=== PATIENT | female | born 1965 | race Caucasian/White ===

== ENCOUNTER 2025-04-11 11:45 | Emergency (ER) | payer BC, SELFPAY ==
--- OUTSIDE RECORDS SUMMARY | 2024-02-11 05:10 | XMS_ITS ---
Author Organization [facility] Address [address] [place], [place] [id number] Care Team Providers Care Windows Application Developer Name Role Phone MARIETTA PARK Unavailable [phone] Jazzy Adam Unavailable Unavailable REASON FOR VISIT *General care Encounters Encounter Location Date Provider Diagnosis [facility] [address] [facility] [address] [place], [place] [id number] 02/11/2024 MARIETTA PARK Plan Of Treatment No Information Progress Notes * JUNIREBECCATONIAOB: 3 (59 yo F)Acc No.[id number]:02/11/2024 Patient: STEPHANE BORREGO Provider: Ced PARK :1965 A ge:58 Y S ex:Female Date:02/11/2024 Address:[facility] [address] [id number] Subjective: * Chief Complaints: * 1 . *General care. * Medical History: Objective: * Vitals: Assessment: Plan: * Treatment: * Billing Information: * Visit Code: * Procedure Codes: * Electronic signature of VINICIO PARK DPM on 04/11/2025 at 12:06 PM CDT Sign off status: Pending * Provider: Ced PARK Date: 02/11/2024 Generated for Keegani ng/Facammyg/eTransmitting on: 04/11/2025 12:06 PM CDT
--- OUTSIDE RECORDS SUMMARY | 2025-01-27 05:40 | XMS_ITS ---
[facility] Address [address] [place], [place] [id number] Care Team Providers Care Principal Java Software Engineer Name Role Phone MARIETTA PARK Unavailable [phone] Jazzy Adam Unavailable Unavailable CARLOS PARKS Unavailable [phone] REASON FOR VISIT lamisol follow up Encounters Encounter Location Date Provider Diagnosis [facility] [address] [facility] [address] [place], [place] [id number] 01/27/2025 CARLOS PARKS Plan Of Treatment No Information Progress Notes * SHERRON ALFREDOOB: 3 (59 yo F)Acc No.[id number]:01/27/2025 Patient: STEPHANE BORREGO Provider: Mercy Parks DPM :1965 A ge:59 Y S ex:Female Date:01/27/2025 Address:[facility] [address] [id number] Subjective: * Chief Complaints: * 1 . Lamisol follow up. * Medical History: Objective: * Vitals: Assessment: Plan: * Treatment: * Billing Information: * Visit Code: * Procedure Codes: * Electronic signature of CARLOS PARKS DPM on 04/11/2025 at 12:06 PM CDT Sign off status: Pending * Provider: Mercy Parks DPM Date: 01/27/2025 Generated for Juany lipscomb/Myriam/eTransmitting on: 04/11/2025 12:06 PM CDT
--- OUTSIDE RECORDS SUMMARY | 2025-03-16 08:10 | XMS_ITS ---
Author [facility] Address [address] [place], [place] [phone] Care Team Providers Care Sheetrock Applicator Name Role Phone MARIETTA PARK Unavailable [phone] Jazzy Adam Unavailable Unavailable CARLOS PARKS Unavailable [phone] REASON FOR VISIT *Fungal nail check Encounters Encounter Location Date Provider Diagnosis [facility] [address] [facility] [address] [place], [place] [id number] 03/16/2025 CALROS PARKS Plan Of Treatment No Information Progress Notes * SHERRON ALFREDOOB: 3 (59 yo F)Acc No.[id number]:03/16/2025 Patient: STEPHANE BORREGO Provider: Mercy Parks DPM :1965 A ge:59 Y S ex:Female Date:03/16/2025 Address:[facility] [address] [facility] Subjective: * Chief Complaints: * 1 . *Fungal nail check. * Medical History: Objective: * Vitals: Assessment: Plan: * Treatment: * Billing Information: * Visit Code: * Procedure Codes: * Electronic signature of CARLOS PARKS DPM on 04/11/2025 at 12:06 PM CDT Sign off status: Pending * Provider: Mercy Parks DPM Date: 03/16/2025 Generated for Juany lipscomb/Myriam/eTransmitting on: 04/11/2025 12:06 PM CDT
--- OUTSIDE RECORDS SUMMARY | 2025-04-06 05:53 | XMS_ITS | Continuity of Care Document ---
Author Organization [employer] Address [address] [place] [address] Phone Care Team Providers Care Recycling Assistant Name Role Phone Jazzy Adam MD Unavailable Unavailable Allergies, Adverse Reactions, Alerts Substance Reaction Status Criticality No Known Allergies Active No Inform ation Medications Medication Instructions Dosage Effective Dates (start - stop) Status Comments diazepam 5 mg tablet TAKE 1/2 TO 1 TAB TWICE DAILY NEEDED FOR ANXIETY. DO NOT TAKE WITHIN 8 HOURS OF TAKING AMBIEN - Active clobetasol 0.05 % topical cream apply by topical route 2 times every day a thin layer to the affected areas on arms and legs and trunk - Active sertraline 50 mg tablet 1/2 tab once daily x 1 week then 1 tab once daily - Active Ambien 5 mg tablet TAKE 1 TABLET BY PRESTON EVERY DAY AT BEDTIME NEEDED FOR INSOMNIA - Active Calcium 500 + D 500 mg(1,250 mg)-400 unit chewable tablet chew 2 gummies by mouth once daily - Active Fiber Gummies 2 gram chewable tablet 2 chewable tablets daily - Active Probiotic 3 billion cell chewable tablet 2 tablets daily - Active Xiidra 5 % eye drops in a dropperette instill 1 drop by ophthalmic route 2 times every day into both eyes approximately 12 hours apart 1.00 drop - Active Vitamin D3 5,000 unit tablet take 1 tablet by mouth once daily - Active hydroxyzine HCl 10 mg tablet 1 to 2 tabs every 6 hours as needed for itching and anxiety - Active Procedures Procedure Date DSCHRG MED/CURRENT MED MERGE OFFICE INMSR-DIZ-YDHEVWVR BODY MASS INDEX DOCD SYST BP >= 140 MM HG6 IT DIAST BP 80-89 MM HG HEPATIC FUNCTION PANEL(LFT, LIVER) OFFICE LHRJT-SDJ-UOYOGWBI SYST BP >= 140 MM HG6 IT DIAST BP < 80 MM HG CBC, INC PLATELETS AND DIFFERENTIAL COMPREHEN METABOLIC PANEL CMP LIPID PANEL Pt inelig neg scrn depres PREVENTATIVE-EST: BODY MASS INDEX DOCD SYST BP LT 130 MM HG DIAST BP < 80 MM HG ROUTINE VENIPUNCTURE IL OFFICE IYSXG-JIM-FZSPXHXZ BODY MASS INDEX DOCD SYST BP GE 130 - 139MM HG DIAST BP < 80 MM HG Brief Emotional/Behavioral A ssessment, With Scoring/Doct, Per Stndrd Instrument Clin depression screen doc OFFICE DYFUB-NLD-VSFMTLEA BODY MASS INDEX DOCD SYST BP LT 130 MM HG DIAST BP < 80 MM HG OFFICE GANIW-KQC-IFXIARZI BODY MASS INDEX DOCD SYST BP LT 130 MM HG DIAST BP < 80 MM HG OFFICE DVSRL-ZFL-STJOARWC SYST BP >= 140 MM HG6 IT DIAST BP < 80 MM HG Pt inelig neg scrn depres PREVENTATIVE-EST: BODY MASS INDEX DOCD SYST BP LT 130 MM HG DIAST BP < 80 MM HG CBC, INC PLATELETS AND DIFFERENTIAL COMPREHEN METABOLIC PANEL CMP 3 LIPID PANEL ROUTINE VENIPUNCTURE IL OFFICE ZRERC-PFG-QNEIJNXK BODY MASS INDEX DOCD SYST BP LT 130 MM HG DIAST BP < 80 MM HG Pt inelig neg scrn depres PREVENTATIVE-EST: 40-64 BODY MASS INDEX DOCD SYST BP GE 130 - 139MM HG DIAST BP < 80 MM HG GENERAL HEALTH PANEL LIPID PANEL ROUTINE VENIPUNCTURE OFFICE NIALK-JGY-ZMKWJREB BODY MASS INDEX DOCD SYST BP LT 130 MM HG DIAST BP < 80 MM HG Pt inelig neg scrn depres OFFICE ERLTW-PDS-QLPUPSTG BODY MASS INDEX DOCD SYST BP >= 140 MM HG6 IT DIAST BP 80-89 MM HG Pt inelig neg scrn depres PREVENTATIVE-EST: 40-64 BODY MASS INDEX DOCD SYST BP LT 130 MM HG DIAST BP < 80 MM HG CBC, INC PLATELETS AND DIFFERENTIAL COMPREHEN METABOLIC PANEL CMP 1 LIPID PANEL ROUTINE VENIPUNCTURE SYST BP GE 130 - 139MM HG DIAST BP < 80 MM HG OFFICE QMMJD-XPS-YCSAEGMK BODY MASS INDEX DOCD SYST BP GE 130 - 139MM HG DIAST BP < 80 MM HG OFFICE PTFTZ-QBV-IHAAYSFT BODY MASS INDEX DOCD SYST BP GE 130 - 139MM HG DIAST BP < 80 MM HG OFFICE YWMUN-ILA-OXACXEAI BODY MASS INDEX DOCD SYST BP GE 130 - 139MM HG DIAST BP < 80 MM HG Pt inelig neg scrn depres DESTRUCT BENIGN LESIONS OTHE R THAN SKIN TAGS OR CUTANEOUS VASCULAR LESIONS UP TO OFFICE NIBZP-CTH-IILBJIUQ BODY MASS INDEX DOCD SYST BP GE 130 - 139MM HG DIAST BP < 80 MM HG EAR WASH, REMOVAL IMPACTED CERUMEN Requi ring Instrumentation CBC, INC PLATELETS AND DIFFERENTIAL COMPREHEN METABOLIC PANEL CMP 0 LIPID PANEL ROUTINE VENIPUNCTURE EAR WASH, REMOVAL IMPACTED CERUMEN Requi ring Instrumentation Pt inelig neg scrn depres PREVENTATIVE-EST: 40-64 BODY MASS INDEX DOCD SYST BP GE 130 - 139MM HG DIAST BP < 80 MM HG OFFICE HHZRW-ITK-SGMWUWCX BODY MASS INDEX DOCD SYST BP LT 130 MM HG DIAST BP < 80 MM HG Advance Directives Directive Yes / No Effective Date File Name Life Support Not Answered N/A N/A Intubation Not Answered N/A N/A Antibiotics Not Answered N/A N/A IV Fluid Support Not Answered N/A N/A Tube Feed Not Answered N/A N/A Other Directive N/A N/A WARNING:The information contained in this section is historical and is provided for information only and does not constitute a legal document or any assurance that the information is still accurate. Please verify the information with the briceno of the legal document before using it for clinical purposes. Encounters Encounter Description Practice Location Reason(s) For Visit Diagnoses Date Provider Providers Copied on Encounter [facility], [address], [place], [place], [address] , [place] tel: [phone] [facility] No Information 5 Jair Purcell. [address] [place], [place], [address] , [place]. tel: [phone] [facility], [address], [place], [place], [address] , [place] tel: [phone] [facility] No Information Mar-0 5 Jair Purcell. [address] [place], [place], [address] , [place]. tel: [phone] Referring Provider: Jazzy Ch, [address] [place], [address] . tel:[phone] OFFICE SYLWX-SET-HJ [facility], [address], [place], [place], [address] , [place] tel: [phone] [facility] f/u urgent care visit (chief complaint)satinder luate rash (chief complaint) Anxiety, generalizedRash 5 Jair Purcell. [address] [place], [address] , [place]. tel: [phone] Referring Provider: Jazzy Ch, [address] [place], [address] . tel:[phone] [facility], [address], [place], [place], [address] , [place] tel: [phone] [facility] No Information 5 Bernice Machado. [address], [address] , [place]. tel: [phone] Referring Provider: Any Cook, [address] [place], [address] . tel:[phone] OFFICE XWPQM-VNK-OW [facility], [address], [place], [place], [address] , [place] tel: [phone] [facility] ear pain (chief complaint) Right acute otitis mediaAcute effusion of right earAcute conjunctivitis of left eye, unspecified acute conjunctivitis typeThickened nailTinea unguium 5 Joey Agarwal. [address] [place], [address] , [place]. tel: [phone] Referring Provider: Jazzy Ch, [address] [place], [address] . tel:[phone] [facility], [address], [place], [place], [address] , [place] tel: [phone] [facility] No Information 4 Bernice Machado. [address] [place] [address], [address] , [place]. tel: [phone] Referring Provider: Jazzy Ch, [address] [place], [address] . tel:[phone] PREVENTATIVE -EST: 40-64 [facility], [address], [place], [place], [address] , [place] tel: [phone] [facility] preventive exam (chief complaint) Body mass index [BMI] 23.0-23.9, adultGeneralized anxiety disorderInsomnia , unspecified typeAnnual physical exam 4 Jair Purcell. [address] [place], [place], [address] , [place]. tel: [phone] Referring Provider: Jazzy Ch, [address] [place], [address] . tel:[phone] OFFICE SCBUA-JVW-IQ TAILED [facility], [address], [place], [place], [address] , [place] tel: [phone] [facility] Chronic conditions (chief complaint)Chr onic Conditions (chief complaint) Insomnia, unspecified typeDysfunction of left eustachian tubeThrushGenera lized anxiety disorder 4 Jair Purcell. [address] [place], [place], [address] , [place]. tel: [phone] Referring Provider: Jazzy Ch, [address] [place], [address] . tel:[phone] OFFICE ZLSAB-SMY-CQ TAILED [facility], [address], [place], [place], [address] , [place] tel: [phone] [facility] Evaluate increased anxiety (chief complaint) Generalized anxiety disorderInsomnia , unspecified typeModerate major depression 4 Jair Purcell. [address] [place], [place], [address] , [place]. tel: [phone] Referring Provider: Jazzy Ch, [address] [place], [address] . tel:[phone] [employer] [facility], [address], [place], [place], [address] , [place] tel: [phone] [facility] Asymptomatic menopausal state 4 Jair Purcell. [address] [place], [address] , [place]. tel: [phone] OFFICE YMBOD-GIB-YQ PANDED [employer] [facility], [address], [place], [place], [address] , [place] tel: [phone] [facility] itchy/irritat ed eyes (chief complaint) Watery eyesPruritus of both eyesEye swelling, left May-0 3 Jair Purcell. [address] [place], [place], [address] , [place]. tel: [phone] Referring Provider: Jazzy Ch, [address] [place], [address] . tel:[phone] OFFICE BDSCO-HVP-EM PANDED [facility], [address], [place], [place], [address] , [place] tel: [phone] [facility] dry mouth (chief complaint) Dry mouth 0 3 Cook Any. [address] [place], [place], [address] , [place]. tel: [phone] Referring Provider: Jazzy Ch, [address] [place], [address] . tel:[phone] PREVENTATIVE -EST: 40-64 [facility], [address], [place], [place], [address] , [place] tel: [phone] [facility] preventive exam (chief complaint) Body mass index [BMI] 23.0-23.9, adultAnnual physical exam Sep- 3 Jair Purcell. [address] [place], [place], [address] , [place]. tel: [phone] Referring Provider: Jazzy Ch, [address] [place], [address] . tel:[phone] [facility], [address], [place], [place], [address] , [place] tel: [phone] [facility] No Information Sep- 3 Bernice Ashn. [address] [facility], [address], [address] , [place]. tel: [phone] Referring Provider: Jazzy Ch, [address] [place], [address] . tel:[phone] [facility], [address], [place], [place], [address] , [place] tel: [phone] [facility] Annual physical examScreening for lipid disorders Sep- 3 Jair Purcell. [address] [place], [place], [address] , [place]. tel:[phone] Referring Provider: Jazzy Ch, [address] [place], [address] . tel:[phone] OFFICE YEIOA-ASF-XO PANDED [facility], [address], [place], [place], [address] , [place] tel: [phone] [facility] evaluate multiple complaints (chief complaint) Pain in right kneePain in left kneeNeck painLeft-sided headache Apr-2 3 Jair Purcell. [address] [place], [address] , [place]. tel:[phone] Referring Provider: Jazzy Ch, [address] [place], [address] . tel:[phone] PREVENTATIVE -EST: 40-64 [facility], [address], [place], [place], [address] , [place] tel:[phone] Aline Px (chief complaint) Body mass index [BMI] 23.0-23.9, adultRoutine medical exam 2 Jair Purcell. [address] [place], [address] , [place]. tel:[phone] Referring Provider: Jazzy Ch, [address] [place], [address] . tel:[phone] [facility], [address], [place], [place], [address] , [place] tel: [phone] Aline Blood tests for routine general physical examinationScree adrianne for lipoid disordersFatigue , unspecified type 2 Jair Purcell. [address] [place], [address] , [place]. tel:[phone] Referring Provider: Jazzy Ch, [address] [place], [address] . tel:[phone] OFFICE XGFEF-SKA-IU [facility], [address], [place], [place], [address] , [place] tel: [phone] Aline evaluate chest pain (chief complaint) Body mass index [BMI] 22.0-22.9, adultGeneralized anxiety disorderChest wall painInsomnia, unspecified typeUpper back pain 2 Jair Purcell. [address] [place], [address] , [place]. tel:[phone] Referring Provider: Jazzy Ch, [address] [place], [address] . tel:[phone] OFFICE SCNJU-YRO-NW [facility], [address], [place], [place], [address] , [place] tel: [phone] Aline f/u bronchitis (chief complaint) Body mass index [BMI] 22.0-22.9, adultSinusitis, unspecified chronicity, unspecified locationBronchit is 2 Jair Purcell. [address] [place], [place], [address] , [place]. tel: [phone] Referring Provider: Jazzy Ch, [address] [place], [address] . tel:[phone] PREVENTATIVE -EST: 40-64 [employer], [address], [place], [place], [address] , tel: [phone] [employer] Preventative exam (chief complaint)pre ventive exam (chief complaint) Body mass index (BMI) 23.0-23.9, adultRoutine medical examDigital mucinous cyst of finger of right hand 1 Jair Purcell. [address] [place], [place], [address] , [place]. tel: [phone] Referring Provider: Jazzy Ch, [address] [place], [address] . tel:[phone] [employer], [address], [place], [place], [address] , [place] tel: [phone] [facility] Routine medical exam 1 Jair Purcell. [address] [place], [place], [address] , [place]. tel: [phone] Referring Provider: Jazzy Ch, [address] [place], [address] . tel:[phone] OFFICE BSNJG-HGL-RR PANDED [employer], [address], [place], [place], [address] , tel: [phone] [facility] tick bite (chief complaint) Tick bite, initial encounterAllergi c reaction, initial encounterAnxiety Insomnia, unspecified type 1 Joey Agarwal. [address] [place], [place], [address] , [place]. tel: [phone] Referring Provider: Jazzy Ch, [address] [place], [address] . tel:[phone] OFFICE ENIXJ-RAN-AD [facility], [address], [place], [place], [address] , [place] tel: [phone] Aline right ear issues (chief complaint) Pulsatile tinnitus, right earAnxiety Apr-2 1 Joey Any. [address] [place], [place], [address] , [place]. tel: [phone] Referring Provider: Jazzy Ch, [address] [place], [address] . tel:[phone] OFFICE QEUTS-TKZ-OO [facility], [address], [place], [place], [address] , [place] tel: [phone] Aline possible anxiety (chief complaint) Anxiety Oct- 1 Joey Roblesa. [address] [place], [place], [address] , [place]. tel: [phone] Referring Provider: aJzzy Ch, [address] [place], [address] . tel:[phone] [facility], [address], [place], [place], [address] , [place] tel: [phone] Aline Acute pain of left shoulder Apr-0 1 Jair Purcell. [address] [place], [place], [address] , [place]. tel: [phone] OFFICE QGMZZ-YZB-EM [facility], [address], [place], [place], [address] , [place] tel: [phone] Aline evaluate left shoulder pain (chief complaint)Chr onic Conditions (chief complaint) Body mass index (BMI) 25.0-25.9, adultAcute pain of left shoulderInflamed seborrheic keratosisInsomni a, unspecified typeDigital mucinous cyst of finger of right hand Sep-2 1 Jair Purcell. [address] [place], [place], [address] , [place]. tel: [phone] Referring Provider: Jazzy Ch, [address] [place], [address] . tel:[phone] [facility], [address], [place], [place], [address] , [place] tel: [phone] [facility] Pain of right middle finger 1 Jair Purcell. [address] [place], [address] , [place]. tel: [phone] [facility], [address], [place], [place], [address] , [place] tel: [phone] [facility] Paresthesias in right hand Sep-1 0-202 0 Jair Purcell. [address] [place], [address] , [place]. tel: [phone] [facility], [address], [place], [place], [address] , [place] tel: [phone] [facility] cerumen impaction (chief complaint) Bilateral impacted cerumenBilateral hearing loss, unspecified hearing loss typeAdult general medical exam 0 Joey Agarwal. [address] [place], [address] , [place]. tel: [phone] Referring Provider: Jazzy Ch, [address] [place], [address] . tel:[phone] PREVENTATIVE -EST: 40-64 [facility], [address], [place], [place], [address] , [place] tel: [phone] [facility] Physical (chief complaint)pre ventive exam (chief complaint) Body mass index (BMI) 25.0-25.9, [facility] medical examBilateral impacted cerumen 0 Jair Purcell. [address] [place], [place], [address] , [place]. tel: [phone] Referring Provider: Jazzy Ch, [address] [place], [address] . tel:[phone] OFFICE PMVLV-VFC-QH TAILED [facility], [address], [place], [place], [address] , [place] tel: [phone] [facility] 3rd right toe red and painful (chief complaint) Paronychia of toe of right footFatigue, unspecified type Sep- 2- 0 Cook Any. [address] [place], [place], [address] , [place]. tel: [phone] Referring Provider: Jazzy Ch, [address] [place], [address] . tel:[phone] [facility], [address], [place], [place], [address] , [place] tel: [phone] [facility] Breast asymmetry 9 Jair Purcell. [address] [place], [place], [address] , [place]. tel: [phone] Referring Provider: Jazzy Ch, [address] [place], [address] . tel:[phone] [facility], [address], [place], [place], [address] , [place] tel: [phone] [facility] Routine medical examPure hypercholesterol emiaRight knee pain, unspecified chronicity 9 Jair Purcell. [address] [place], [address] , [place]. tel: [phone] Referring Provider: Jazzy hC, [address] [place], [address] . tel:[phone] [facility], [address], [place], [place], [address] , [place] tel: [phone] [facility] Routine general medical examination at a health care facilityPure hypercholesterol emia 9 Jair Purcell. [address] [place], [place], [address] , [place]. tel: [phone] Referring Provider: Jazzy Ch, [address] [place], [address] . tel:[phone] [facility], [address], [place], [place], [address] , [place] tel: [phone] Aline Post-menopausal Jun- 8 Jair Purcell. [address] [place], [address] , [place]. tel: [phone] [facility], [address], [place], [place], [address] , [place] tel: [phone] Aline Right foot painAcute pain of right knee 8 Jair Purcell. [address] [place], [place], [address] , [place]. tel: [phone] [facility], [address], [place], [place], [address] , [place] tel: [phone] Aline Acute pain of right kneeRight foot pain 8 Jair Purcell. [address] [place], [place], [address] , [place]. tel: [phone] Referring Provider: Jazzy Ch, [address] [place], [address] . tel:[phone] [employer], [address], [place], [place], [address] , [place] tel: [phone] [facility] Allergic rhinitis, unspecified seasonality, unspecified triggerSeborrhei c keratosis 8 Jair Purcell. [address] [place], [place], [address] , [place]. tel: [phone] Referring Provider: Jazzy Ch, [address] [place], [address] . tel:[phone] [employer], [address], [place], [place], [address] , [place] tel: [phone] [facility] Pure hypercholesterol emiaInsomnia due to medical conditionDegener ative disc disease, lumbar Oct- 8 Jair Jazzy. [address] [place], [place], [address] , [place]. tel: [phone] Referring Provider: Jazzy Ch, [address] [place], [address] . tel:[phone] [employer] [facility], [address], [place], [place], [address] , [place] tel: [phone] Aline Pure hypercholesterol emiaRoutine general medical examination at a health care facility 8 Jair Purcell. [address] [place], [place], [address] , [place]. tel:[phone] Referring Provider: Jazzy Ch, [address] [place], [address] . tel:[phone] [facility], [address], [place], [place], [address] , tel: [phone] [facility] Pain of toe of left foot 0 8 Jair Purcell. [address] [place], [address] , [place]. tel:[phone] [facility], [address], [place], [place], [address] , tel: [phone] [facility] Routine general medical examination at a health care facilityPure hypercholesterol emiaDegenerative disc disease, lumbarInsomnia due to medical conditionScreeni ng for osteoporosis 8 Jair Jazzy. [address] [place], [place], [address] , [place]. [phone] Referring Provider: Jazzy Ch, [address] [place], [address] . tel:[phone] Family History Family Member Type Diagnosis Age At Onset No Information Immunizations Vaccine Date Status Comments Fluzone Quad, preservative free, split virus, 0.5mL dosage refused Source: New Immuniza tion Record Tdap administered Source: Source Unspecified Payers Payer name Insurance type Covered republican ID Authoriza tion(s) [facility] [id number] Social History Type Description Quantity Date Captured Comments Alcohol Use Details Unknown Caffeine Use Details Unknown Tobacco Use Status No Information Smoking Status No Information Sex Female Chief Complaint And Reason For Visit No Information Reason For Referral Reason For Referral No Information Plan Of Treatment Date Type Action Status Goal Dietary manageme nt education, guidance, and counseling completed Goal Dietary manageme nt education, guidance, and counseling completed Goal Dietary manageme nt education, guidance, and counseling completed Goal Dietary manageme nt education, guidance, and counseling completed Goal Dietary manageme nt education, guidance, and counseling completed Goal Dietary manageme nt education, guidance, and counseling completed Goal Dietary manageme nt education, guidance, and counseling completed Goal Dietary manageme nt education, guidance, and counseling completed Referral Referred To: Al Gould MD [address] [place], [phone] Ordered: Referrals: Gastroenterology. Al Gould MD. Evaluation/diagnostic/treatment - Level 3 ordered Referral Referred To: [address] [place], [phone] Ordered: DEXA of spine and hip ordered Referral Referred To: Link Kelley MD Ordered: Referrals: Hand surgery. Link Kelley MD. Location: [address] [place] [address] [address], [place] [address]. Evaluation/diagnostic/treatment - Level 3 ordered Referral Referred To: Jaime Basilio MD [address] [place], [phone] Ordered: Referrals: Otolaryngology. Jaime Basilio MD. Evaluation/diagnostic/treatment - Level 3 ordered Referral Referred To: Physical Therapy [address] [place], [phone] Ordered: Referrals: Physical Therapy. Location: [facility]. Evaluation/diagnostic/treatment - Level 3 ordered Referral Referred To: [address] [place], [phone] Ordered: MRI of left shoulder without contrast ordered Referral Referred To: Kimberly Minaya MD [address] [place], [phone] Ordered: Referrals: Dermatology. Kimberly Minaya MD. Evaluation/diagnostic/treatment - Level 3 ordered Referral Referred To: [address] [place], [phone] Ordered: X-ray right hand, 3+ views ordered Referral Referred To: [address] [place] [place], [phone] Ordered: Limited electromyography with nerve conduction study ordered Referral Ordered: DIAGNOSTIC MAMMOGRAM (CAD) ONE BREAST Right Appointment date/timeframe: 06/03/2019 ordered Appointment Haris Lockhart BOOKED Appointment Haris Lockhart BOOKED History Of Present Illness Encounter Date Complaint History Of Prese nt Illness f/u urgent care visit Pt. was se en in [facility] urgent care 3 days ago due to palpitaitons and feeling shakey after a 10 mile bike ride. Pt. had 12 lead EKG done that was normal and had normal glucose level.STates she had been on a 10 mile bike ride and symptoms started toward the end of the ride.Reports she has been feeling more anxious over past year. States stress recently higher dealing with her 's health issues and his family. Feels anxious most days. Tries to calm herself down by exercising. Not interested in seeing a counselor. No SI's or HI's. evaluate rash Pt. has a diffus e rash on arms, legs, and trunk that started approx. 2 weeks ago. States rash has been spreading and starts as small blisters that are itchy. States it has spread to upper thighs and chest and neck. States she started [facility]afine from [facility] for onychomycosis but no other new meds. Does work in garden regularly. ear pain 59 year old kirsten pena who presents with ear pain for about 2 weeks. She was evaluated at [facility] on 11/28 with right ear pressure and pulsating feeling that had been ongoing for 8-9 days. She also reported left eye redness and irritation with matting and purulent drainage. She was treated with amoxicillin 875 mg BID for 10 days and Polytrim.She has no allergy symptoms, fever, cough, congestion, headaches. She also reports pulsing in her right ear that has been ongoing for a long time. She has been to ENT in the past. She is going to followup with her eye doctor since she wears contact lens. She did not use Polytrim and used a -floxacin eye drop. She reports her symptoms are improving. She has order for LFTs from Dr Meagan DPM. She was taking terbinafine prescribed by crating and moving estimator. preventive exam Associated sympt oms include anxiety. Pertinent negatives include depression. The patient does not use tobacco. The patient does not drink alcohol. Additional information: Routine PE done todayExercising regularlyFasting labs done todayMammogram and DEXA UTDDue for colonoscopyHas generalized anxiety controlled with exercise and takes diazepam on rare intermittent occasions when anxiety is worse. Has only used approx. 20 tabs in past 3 months.has insomnia and takes ambien prn. Chronic conditions Chronic Conditions *See Chronic Conditions HPI Evaluate increased anxiety Pt. h ere with increased anxiety that started approx. 2.5 weeks ago after she had to put her dog down who was 5 years old. States she has been very upset and anxious and feeling more tearful and depressed. States she has been dealing with several stressors but feels this loss is harder than other losses she has experienced. She feels guilty for leaving town and putting dog in a kennel that required a flu vaccine. States she feels the flu vaccine may have caused the lymphoma that the dog was diagnosed with shortly after she returned from being out of town.Taking diazepam as needed when feeling very anxious and panicked. Has moderate major dpression- new onset. See PQ 9.No SI's or HI's.Willing to start on daily mood stabilizing med. Has chronic insomnia and takes ambien nightly withotu Se's. Does not sleep if she does not take med. itchy/irritated eyes Pt. here wi th States eyes have been itchy and watery fStates she saw her trial justice 3 months ago in February, and was prescribed fluoromethalone eye drops by Dr. Lee's optometry associate on 03/04/23. States she used the drops for 10 days with improvement.Had f/u for routine eye exam in March,, with her trial justice and was advised she could use the fluoromethalone eye drops again for 4 days with improvement since eye itching had returned.States eyes are itchy and watery and has noticed mild swelling over the left infraorbital area over past 5 days States skin feels mildly irritated and tender below the left eye. Not having any nasal congestion and no nasal drainage. No sinus pain or pressure. dry mouth 57 year old femraad pena who presents with dry mouth that has been ongoing for the past few months. She took an antibiotic for 2 1/2 months for a toe infection in September and October 2022. She cannot remember the name of the medication. She reports dry mouth, chalky feeling in mouth. She reports doing salt rinses frequently. She mentioned to Dr Adam at last appointment and discusses that it could be Ambien. She stopped this for 4-5 days and reports this has not improved. preventive exam The patient does not use tobacco. The patient does not drink alcohol. Additional information: Routine PE done today.Exercising regularly.Has occasional right latearl lower thoracic back pain which she attributes to occasional heavy lifting.Fasting labs reviewed with pt. LDL at goal less than 190 with ASCVD 10 year risk score 2%.Sees [employer] for pap smears.Colonoscopy UTDMammogram UTDdue for DEXARefuses to get any vaccines.Takes ambien chronically for chronic insomnia with occasional dry mouth but no other SE's. . evaluate multiple complaints Pt here with pain over medial aspect of bilateral knees that started approx. 2 to 3 weeks ago.Has noticed mild swelling over medial left knee at times. No known injury but had been in [place] walking on the beach fairly often. Has been having pain over left side of neck with mild tightness in muscles on left side of neck and intermittent pain over left side of head.No radiation of pain down the arms. No paresthesias in the arms. No weakness in the arms. Px Routine wellness visit done today. Has continue to follow low fat diet and regular exercise.States she rides her bike several days per week.Reviewed recent fasting labs with pt. LDL increased to 177. Due for mammogram in May.Sees [employer] for routine well woman exams with pap smear UTD per pt. Has chronic insomnia and takes ambien without SE's. . evaluate chest pain Pt. here wit h intermittent chest discomfort that she noticed over the past month.Has been noticing some discomfort over the left upper chest area over the left pectoralis muscle.Feels like a random pain over the area and feels slightly sore over the area. Had [facility] screening done recently and was told at screening that her EKG done at that time was normal.Has been walking regularly and has not noticed any chest discomfort when walking.Has noticed increased soreness and tightness in upper back muscles also. Has been under more stress over past 7 to 8 months and feeling more anxious most days. Feels anxiety has been worse over past 1 to 2 months. States left upper chest soreness is worse when feeling more anxious. States it feels like a mild achiness over the area and does not radiate anywhere. Lasts for approx. 10 to 15 seconds and then resolves. Has been exercising regulaly. No recent weight lifting with her arms. Feels left shoulder feels stiff at times. Takes ambien several nights per week due to chronic insomnia. f/u bronchitis Pt. started with cough approx. 15 days ago.Seen in ER on 07/31/21- see ER note. Had CXR done that showed peribronchial thickening. Pt. was treated with oral prednisone but continues to have cough and chest congestion. No fever. Having signifcant fatigue. No wheezing but feels mildly SOB when she tries to move around too much.Having increased headaches over frontal area and increased thick PND.States ER did not perform covid testing due to symptoms ongoing for approx 8 days at that time. Preventative exam preventive exam The patient does not use tobacco. She does not drink alcohol. Additional information: Routine wellness visit done today. Has been losing weight intentionally with diet and exercise.States she rides her bike several days per week.Reviewed recent fasting labs with pt. LDL improved to 157. Due for mammogram in May.Saw [employer] for routine well woman exam in September,.Has chronic insomnia and takes ambien without SE's. . tick bite 55 year old kirsten pena who presents with tick bite 4 days ago. She was in a wooded area and then noticed an attached tick. Someone else was able to remove it. IT was only attached for 30 minutes. She reports itching to area with erythema and edema. She has no pain. She has no drainage. Denies fever ,chills, drainage. right ear issues 55 year old teri kruse who presents with right ear pulsating for several months. This comes and goes. She describes as a pounding sensation in her right ear. She has no ear drainage, hearing loss, sinus problems. She has tension headaches at times. She has no symptoms on the left side. She can feel the pulsating and hear the pulsating. She has never had symptoms like this before.Patient has anxiety and is managing without medications. Patient has a lot of family stressors. We have discussed starting medications but she is hesitant to try anything. possible anxiety 55 year old teri kruse who presents with anxiety that has been ongoing but worsened recently. She reports having a lot of stressors at home with his 's health problems. His most recent health problem was CVA in December 2019. She is raising a grandson as well. Her daughter recently had a very difficult labor and delivery 2 weeks ago and this made her anxiety much worse. She reports feeling heart racing and pounding in her ears with feeling more anxious. She exercises daily with walking. She is avoiding the gym due to COVID. She does not take any medications for anxiety. She takes Ambien to help her sleep. evaluate left shoulder pain Pt. reports left shoulder pain x 6 weeks since her [employer] Retriever dog jerked her arm when walking her on the leash. States she has pain posteriolaterally worse with extension and internal and external rotation and abduction.States a friend did an u/s of the shoulder and thinks she may have a small tear over the subscapularis.Has been doing home exercises for ROM and strength without improvement over past 6 weeks. She would like to proceed with MRI. Chronic Conditions *See Chronic Conditions HPI cerumen impaction 54 year old fe male who presents with bilateral ear wax impaction. This was noted at last appointment a few weeks ago .Patient has been using Debrox drops. Patient reports difficulty hearing. Physical preventive exam The patient does not use tobacco. She does not drink alcohol. Additional information: Pt. had bone density done in 12/18 showed osteopenia.Last mammogram done in 05/01 and then had f/u u/s in 11/30 when she saw breast surgeon that showed cysts. Surgeon recommended 6 months f/u mamm and u/s -see general surgery note from ees Dr. Mistry, manager school, at [facility] mildly elevated cholesterol- not much exercise due to 's illness.Has been taking ambien at night due to worse insomnia worse recently. No SE's on the med.Having muffled hearing in right ear intermittently worse after swimming. No ear pain presently.. 3rd right toe red and painful 54 year old female who presents with right toe pain for a few months. She had injury at that time. She was evaluated at urgent care and was prescribed antibiotic at that time. Her symptoms improved. Patient wore crocs in [place] one month ago and her symptoms have worsened. Her symptoms started to improve but she continues to have erythema and edema to right third toe. She was applying neosporin and doing epsom baths. She has not been doing this recently. Her had a heart attack recently and she feels wiped out. She also had influenza. Patient was prescribed for Tamiflu but could not tolerate side effects. She feels overall better from influenza but feels fatigued. She has not been exercising recently due to illness and husbands [facility]. Functional Status Date Functional Assessmen t No Information Instructions Date Instruction Additional Infor lisa This appears most co nsistent with a contact dermatitisSince this is spreading, Start prednisone taper- take in the morning if possibleAvoid salty food and drink plenty of waterThis can make you more sun sensitive so avoid direct sunlight and use sunscreenRx sent for clobetasol steroid cream Related to Rash Start sertraline 50m g tab- 1/2 tab once daily x 1 week then 1 tab daily- reviewed possible side effectsContinue regular exerciseCall back if you are interested in seeing a counselor for a referral Related to Anxiety, generalized Followup with your eye doctor Re lated to Acute conjunctivitis of left eye, unspecified acute conjunctivitis type Continue amoxicillin twice daily until completed. BEGIN TAKING PREDNISONE 40 MG DAILY. YOU MAY TAKE 1 TABLET TWICE DAILY OR 2 TABLETS IN THE MORNINGCall us next week if symptoms are not improving Related to Acute effusion of right ear We will check LFTs t kain as ordered by Dr Rhodes Related to Thickened nail Continue amoxicillin twice daily until completed. BEGIN TAKING PREDNISONE 40 MG DAILY. YOU MAY TAKE 1 TABLET TWICE DAILY OR 2 TABLETS IN THE MORNINGCall us next week if symptoms are not improving Related to Right acute otitis media continue ambien as needed Relate d to Insomnia, unspecified type Referral to Dr. Sakina monique for colonoscopy you are due forFasting labs done todayContinue yearly screening mammogramContinue to follow up with your family preservation caseworker for routine Pap smearsContinue regular exerciseCall if you change your mind about getting a flu vaccine and you can schedule this here at the officefollow up in 1 year for physical and labs Related to Annual physical exam Continue to do some regular exerciseContinue diazepam as needed Related to Generalized anxiety disorder Exercise Dietary management e ducation, guidance, and counseling Related to Body mass index (BMI) 23.0-23.9, adult Complete nystatin as prescribedReviewed instructions on how to take medication and importance of trying to avoid eating and drinking for at least an hour after taking medication Related to Thrush Continue to do some regular exerciseCall back if you are interested in talking to a counselor Related to Generalized anxiety disorder Rx printed for predn isone, a low dose steroid to take to reduce inflammation in eustachian tube to start if your symptoms do not improve over the next weekfollow up if any worsening Related to Dysfunction of left eustachian tube continue ambien as needed Relate d to Insomnia, unspecified type Start lexapro 10mg d aily- start with 1/2 tab daily x 1 week then 1 tab dailyCall back if you are interested in talking to a counselor Related to Moderate major depression Continue to do some regular exerciseCall back if you are interested in talking to a counselor Related to Generalized anxiety disorder continue ambien as needed Relate d to Insomnia, unspecified type Nov-02-2023 recommend cool compr esses and you can use topical over the counter hydrocortisone cream to the area below the eye for mild itching of the skin below the eye avoiding getting the hydrocortisone into the eye Related to Eye swelling, left Recommend trying ove r the counter Claritin (Loratidine) once daily which is a daily antihistamine to help reduce itching and watery eyesfollow up with your eye doctor if no improvement or any worsening Related to Pruritus of both eyes Recommend trying ove r the counter Claritin (Loratidine) once daily which is a daily antihistamine to help reduce itching and watery eyesfollow up with your eye doctor if no improvement or any worsening Related to Watery eyes Stay hydratedStop th e salt rinsesBegin using Nystatin swish and swallow four times a day for 7-10 daysContact us if symptoms do not improve or worsen Related to Dry mouth Order given for DEXA hip and spine bone densityContinue yearly screening mammogramContinue to follow up with your family preservation caseworker for routine Pap smearsContinue regular exerciseCall if you change your mind about getting a flu vaccine and you can schedule this here at the officeRecommend getting the newest COVID vaccine at the pharmacy when this is available this fallfollow up in 1 year for physical and labs Related to Annual physical exam Exercise Dietary management e ducation, guidance, and counseling Related to Body mass index (BMI) 23.0-23.9, adult Try to do some regul ar stretchingFollow up if any worsening symptoms Related to Left-sided headache Try to do some regul ar stretchingFollow up if any worsening symptoms Related to Neck pain Try to wear shoes wi th good support at all timesYou can ice and elevate the knees if you have any swellingfollow up if any worsening symptoms Related to Pain in right knee Try to wear shoes wi th good support at all timesYou can ice and elevate the knees if you have any swellingfollow up if any worsening symptoms Related to Pain in left knee Have your mammogram sent here when you have this done this fall.Keep follow up with your family preservation caseworker for routine well woman exams continue regular exerciseContinue calcium and vitamin D supplementRecommend getting the COVID vaccinerecommend getting the Shingrix (shingles) vaccine at the pharmacyRecommend getting the flu vaccine this fallfollow up in 1 year for PE- fasting labs prior Related to Routine medical exam Dietary management e ducation, guidance, and counseling Related to Body mass index (BMI) 23.0-23.9, adult Immunizations Try to do some regul ar stretching and upper back strengthening exercisesfollow up if any worsening symptoms Related to Upper back pain do some regular stre tching exercisesfollow up if any new or worsening symptomsfollow up in January as scheduled Related to Chest wall pain Call back if you are interested in starting on a low dose buspirone to help with anxietycontinue regular exercise Related to Generalized anxiety disorder continue ambien as needed Relate d to Insomnia, unspecified type Dietary management e ducation, guidance, and counseling Related to Body mass index (BMI) 22.0-22.9, adult continue to increase clear liquids, over the counter Mucinex to loosen mucous drainage and follow up if worsening symptoms Related to Bronchitis Rx sent for zithroma xcontinue to increase clear liquids, over the counter Mucinex to loosen mucous drainage and follow up if worsening symptoms Related to Sinusitis, unspecified chronicity, unspecified location Dietary management e ducation, guidance, and counseling Related to Body mass index (BMI) 22.0-22.9, adult referral to Dr. Kanu cummins, hand surgeon to evaluate mucinous cyst on 3rd finger Related to Digital mucinous cyst of finger of right hand Have your mammogram sent here when you are due for this in follow up with your family preservation caseworker for routine well woman exams every Septembercontinue regular exerciseContinue calcium and vitamin D supplement Related to Routine medical exam Dietary management e ducation, guidance, and counseling Related to Body mass index (BMI) 23.0-23.9, adult Exercise Take diazepam as nee ded before your flight Related to Anxiety Continue ambien as n eeded to help you sleepMake sure you take med at least 8 hours prior to awakening time Related to Insomnia, unspecified type This appears to be a local allergic reactionApply hydrocortisone cream as neededMonitor symptoms and call us Related to Allergic reaction, initial encounter Monitor symptoms and contact us if they worsen Related to Tick bite, initial encounter Monitor symptoms and contact us if you are interested in starting medication or symptoms worsen Related to Anxiety Followup with ENT Related to Pul satile tinnitus, right ear I would encourage jonh gaming to seek out counseling resourcesCall us if your symptoms are not improving or worsening Related to Anxiety Keep appointment wit h hand surgeon as scheduled Related to Digital mucinous cyst of finger of right hand Continue ambien as n eeded to help you sleepMake sure you take med at least 8 hours prior to awakening timePE in January with fasting labs prior Related to Insomnia, unspecified type Cryotherapy done tod ay to skin lesions The areas treated with liquid nitrogen should form a blister, scab over, and fall offMonitor for any signs of infection such as redness, drainage or swelling and follow up if any sign of infetionRecommend evaluation by dermatology for skin lesions on face Related to Inflamed seborrheic keratosis MRI of left shoulder orderedwe will notify you with results Related to Acute pain of left shoulder Exercise Dietary management e ducation, guidance, and counseling Related to Body mass index (BMI) 25.0-25.9, adult Cerumen completely r emoved from ear canal Related to Bilateral hearing loss, unspecified hearing loss type Cerumen completely r emoved from ear canal Related to Bilateral impacted cerumen use Debrox drops for 3 to 4 days prior to cerumen removal later this month Related to Bilateral impacted cerumen Have your mammogram sent here when you are due for this.Keep follow up with your family preservation caseworker for routine well woman examscontinue regular walkingschedule fasting labs to be done 02/07/20 Related to Routine medical exam check fasting labsCo nt. to work on low fat diet and increase regular exercise with goal of walking at least 30 min. 3 to 5 times per week. Related to Pure hypercholesterolemia Exercise Dietary management e ducation, guidance, and counseling Related to Body mass index (BMI) 25.0-25.9, adult Get back to regular exercise Rel ated to Fatigue, unspecified type Take antibiotic as prescribedContinue to soak footCall our office if symptoms do not improve Related to Paronychia of toe of right foot Assessments Type Assessment Date No Information Patient Care Teams Name Effective Dates (start - stop) Status Members No Information
--- OUTSIDE RECORDS SUMMARY | 2025-04-06 05:53 | XMS_ITS | Continuity of Care Document ---
Author Organization [email or web address] [place] Address [address] [place] [address] Phone Care Team Providers Care Cardiac Catheterization Technologist Name Role Phone Jazzy Adam MD Unavailable [...] Procedure Date DSCHRG MED/CURRENT MED MERGE OFFICE JNIPK-NBW-FJBTBRGL BODY MASS INDEX DOCD SYST BP >= 140 MM HG6 IT DIAST BP 80-89 MM HG HEPATIC FUNCTION PANEL(LFT, LIVER) OFFICE JQSVV-SCX-ULYKAYTH SYST BP >= 140 MM HG6 IT DIAST BP < 80 MM HG CBC, INC PLATELETS AND DIFFERENTIAL COMPREHEN METABOLIC PANEL CMP LIPID PANEL Pt inelig neg scrn depres PREVENTATIVE-EST: BODY MASS INDEX DOCD SYST BP LT 130 MM HG DIAST BP < 80 MM HG ROUTINE VENIPUNCTURE IL OFFICE INMGA-CHI-LWVIDVWL BODY MASS INDEX DOCD SYST BP GE 130 - 139MM HG DIAST BP < 80 MM HG Brief Emotional/Behavioral A ssessment, With Scoring/Doct, Per Stndrd Instrument Clin depression screen doc OFFICE NJBBH-NVN-CCXBXYUI BODY MASS INDEX DOCD SYST BP LT 130 MM HG DIAST BP < 80 MM HG OFFICE RFMSA-NJQ-SQPHUUWC BODY MASS INDEX DOCD SYST BP LT 130 MM HG DIAST BP < 80 MM HG OFFICE BWZFI-CEK-VTMOLDNH SYST BP >= 140 MM HG6 IT DIAST BP < 80 MM HG Pt inelig neg scrn depres PREVENTATIVE-EST: BODY MASS INDEX DOCD SYST BP LT 130 MM HG DIAST BP < 80 MM HG CBC, INC PLATELETS AND DIFFERENTIAL COMPREHEN METABOLIC PANEL CMP 3 LIPID PANEL ROUTINE VENIPUNCTURE [place] OFFICE BTUKA-BGR-QONKCEDA BODY MASS INDEX DOCD SYST BP LT 130 MM HG DIAST BP < 80 MM HG Pt inelig neg scrn depres PREVENTATIVE-EST: 40-64 BODY MASS INDEX DOCD SYST BP GE 130 - 139MM HG DIAST BP < 80 MM HG GENERAL HEALTH PANEL LIPID PANEL ROUTINE VENIPUNCTURE OFFICE BQJNI-GPM-OZLRRYCS BODY MASS INDEX DOCD SYST BP LT 130 MM HG DIAST BP < 80 MM HG Pt inelig neg scrn depres OFFICE RBKSJ-QXN-HYTSHXXW BODY MASS INDEX DOCD SYST BP >= [...] DIAST BP < 80 MM HG OFFICE PMRPG-CIN-RFYHFCBH BODY MASS INDEX DOCD SYST BP GE 130 - 139MM HG DIAST BP < 80 MM HG OFFICE HJQXU-JKB-CZSHTWTE BODY MASS INDEX DOCD SYST BP GE 130 - 139MM HG DIAST BP < 80 MM HG OFFICE ZKBQB-SVS-ZHRJWCAA BODY MASS INDEX DOCD SYST BP GE 130 - 139MM HG DIAST BP < 80 MM HG Pt inelig neg scrn depres DESTRUCT BENIGN LESIONS OTHE R THAN SKIN TAGS OR CUTANEOUS VASCULAR LESIONS UP TO OFFICE DCSLA-EHA-WLDEIZJA BODY MASS INDEX DOCD SYST BP GE [...] DIAST BP < 80 MM HG OFFICE JPHFE-MQS-YVFJWCGJ BODY MASS INDEX DOCD SYST BP LT [...] Diagnoses Date Provider Providers Copied on Encounter [facility], [address], [place], [place], [address] , [place] tel: [phone] [facility] No Information 5 Jair Purcell. [address] [place], [address] , [place]. tel: [phone] [facility], [address], [place], [place], [address] , [place] tel: [phone] [facility] No Information Mar-0 5 Jair Purcell. [address], [address] , [place]. tel: [phone] Referring Provider: Jazzy Ch, [address] [place], [address] . tel:[phone] OFFICE XGNAJ-LDO-XI [facility], [address], [place], [place], [address] , [place] tel: [phone] [facility] f/u urgent care visit (chief complaint)satinder luate rash (chief complaint) Anxiety, generalizedRash 5 Jair Purcell. [address] [place], [place], [address] , [place]. tel: [phone] Referring Provider: Jazzy Ch, [address] [place], [address] . tel:[phone] [facility], [address], [place], [place], [address] , [place] tel: [phone] [facility] No Information 5 Bernice Machado. [address], [address] , [place]. tel: [phone] Referring Provider: Any Cook, [address] [place], [address] . tel:[phone] OFFICE RVIFD-SVF-JW [facility], [address], [place], [place], [address] , [place] tel: [phone] [facility] ear pain (chief complaint) Right acute otitis mediaAcute effusion of right earAcute conjunctivitis of left eye, unspecified acute conjunctivitis typeThickened nailTinea unguium 5 Joey Agarwal. [address] [place], [place], [address] , [place]. tel: [phone] Referring Provider: Jazzy Ch, [address] [place], [address] . tel:[phone] [facility], [address], [place], [place], [address] , [place] tel: [phone] [facility] No Information 4 Bernice Machado. [address] [place] [address], [id number] , [place]. tel: [phone] Referring Provider: Jazzy Ch, [address] [place], [address] . tel:[phone] PREVENTATIVE -EST: 40-64 [facility], [address], [place], [place], [address] , [place] tel: [phone] [facility] preventive exam (chief complaint) Body mass index [BMI] 23.0-23.9, adultGeneralized anxiety disorderInsomnia , unspecified typeAnnual physical exam 4 Jair Purcell. [address] [place], [place], [address] , [place]. tel: [phone] Referring Provider: Jazzy Ch, [address] [place], [address] . tel:[phone] OFFICE YWWJI-ZTW-RI TAILED [facility], [address], [place], [place], [address] , [place] tel: [phone] [facility] Chronic conditions (chief complaint)Chr onic Conditions (chief complaint) Insomnia, unspecified typeDysfunction of left eustachian tubeThrushGenera lized anxiety disorder 4 Jair Purcell. [address] [place], [address] , [place]. tel: [phone] Referring Provider: Jazzy Ch, [address] [place], [address] . tel:[phone] OFFICE YKIBS-ZJJ-AH TAILED [facility], [address], [place], [place], [address] , [place] tel: [phone] [facility] Evaluate increased anxiety (chief complaint) Generalized anxiety disorderInsomnia , unspecified typeModerate major depression 4 Jair Purcell. [address] [place], [place], [address] , [place]. tel: [phone] Referring Provider: Jazzy Ch, [address] [place], [address] . tel:[phone] [employer] [facility], [address], [place], [place], [address] , [place] tel: [phone] [facility] Asymptomatic menopausal state 4 Jair Purcell. [address] [place], [address] , [place]. tel: [phone] OFFICE XLBKI-OHB-UU PANDED [employer], [address], [place], [place], [address] , [place] tel: [phone] [facility] itchy/irritat ed eyes (chief complaint) Watery eyesPruritus of both eyesEye swelling, left May-0 3 Jair Purcell. [address] [place], [place], [address] , [place]. tel: [phone] Referring Provider: Jazzy Ch, [address] [place], [address] . tel:[phone] OFFICE XZKVZ-CPJ-EL PANDED [facility], [address], [place], [place], [address] , [place] tel: [phone] [facility] dry mouth (chief complaint) Dry mouth 0 3 Cook Any. [address] [place], [place], [address] , [place]. tel: [phone] Referring Provider: Jazzy Ch, [address] [place], [address] . tel:[phone] PREVENTATIVE -EST: 40-64 [facility], [address], [place], [place], [address] , [place] tel: [phone] [facility] preventive exam (chief complaint) Body mass index [BMI] 23.0-23.9, adultAnnual physical exam Sep- 3 Jair Purcell. [address], [place], [address] , [place]. tel:[phone] Referring Provider: Jazzy Ch, [address] [place], [address] . tel:[phone] [facility], [address], [place], [place], [address] , [place] tel: [phone] [facility] No Information Sep- 3 Bernice Ashn. [address] [facility], [address], [address] , [place]. tel: [phone] Referring Provider: Jazzy Ch, [address] [place], [address] . tel:[phone] [facility], [address], [place], [place], [address] , [place] tel: [phone] [facility] Annual physical examScreening for lipid disorders Sep- 3 Jair Purcell. [address] [place], [place], [address] , [place]. tel:[phone] Referring Provider: Jazzy Ch, [address] [place], [address] . tel:[phone] OFFICE JFBJK-UHH-PK PANDED [facility], [address], [place], [place], [address] , [place] tel: [phone] [facility] evaluate multiple complaints (chief complaint) Pain in right kneePain in left kneeNeck painLeft-sided headache Apr-2 3 Jair Purcell. [address] [place], [place], [address] , [place]. tel:[phone] Referring Provider: Jazzy Ch, [address] [place], [address] . tel:[phone] PREVENTATIVE -EST: 40-64 [facility], [address], [place], [place], [address] , [place] tel:[phone] Al[facility] Px (chief complaint) Body mass index [BMI] 23.0-23.9, adultRoutine medical exam 2 Jair Purcell. [address] [place], [place], [address] , [place]. [phone] Referring Provider: Jazzy Ch, [address] [place], [address] . tel:[phone] [facility], [address], [place], [place], [address] , [place] tel: [phone] [facility] Blood tests for routine general physical examinationScree adrianne for lipoid disordersFatigue , unspecified type 2 Jair Purcell. [address] [place], [place], [address] , [place]. tel:[phone] Referring Provider: Jazzy Ch, [address] [place], [address] . tel:[phone] OFFICE YHPUI-YSD-ZQ [facility], [address], [place], [place], [address] , [place] tel: [phone] Aline evaluate chest pain (chief complaint) Body mass index [BMI] 22.0-22.9, adultGeneralized anxiety disorderChest wall painInsomnia, unspecified typeUpper back pain 2 Jair Purcell. [address] [place], [place], [address] , [place]. [phone] Referring Provider: Jazzy Ch, [address] [place], [address] . tel:[phone] OFFICE QMQJS-OQR-ED [facility], [address], [place], [place], [address] , [place] tel: [phone] Aline f/u bronchitis (chief complaint) Body mass index [BMI] 22.0-22.9, adultSinusitis, unspecified chronicity, unspecified locationBronchit is 2 Jair Purcell. [address] [place], [place], [address] , [place]. tel: [phone] Referring Provider: Jazzy Ch, [address] [place], [address] . tel:[phone] PREVENTATIVE -EST: 40-64 [employer], [address], [place], [place], [address] , tel: [phone] [facility] Preventative exam (chief complaint)pre ventive exam (chief complaint) Body mass index (BMI) 23.0-23.9, adultRoutine medical examDigital mucinous cyst of finger of right hand 1 Jair Purcell. [address] [place], [place], [address] , [place]. tel: [phone] Referring Provider: Jazzy Ch, [address] [place], [address] . [phone] [employer], [address], [place], [place], [address] , [place] tel: [phone] [facility] Routine medical exam 1 Jair Purcell. [address] [place], [place], [address] , [place]. tel: [phone] Referring Provider: Jazzy Ch, [address] [place], [address] . tel:[phone] OFFICE FJWBA-MFD-AM PANDED [employer], [address], [place], [place], [address] , tel: [phone] [facility] tick bite (chief complaint) Tick bite, initial encounterAllergi c reaction, initial encounterAnxiety Insomnia, unspecified type 1 Joey Agarwal. [address] [place], [place], [address] , [place]. tel: [phone] Referring Provider: Jazzy Ch, [address] [place], [address] . tel:[phone] OFFICE QLTXJ-DNC-DJ [facility], [address], [place], [place], [address] , [place] tel: [phone] Aline right ear issues (chief complaint) Pulsatile tinnitus, right earAnxiety Apr-2 1 Joey Any. [address] [place], [place], [address] , [place]. tel: [phone] Referring Provider: Jazzy Ch, [address] [place], [address] . tel:[phone] OFFICE VYPZY-HDH-OC [facility], [address], [place], [place], [address] , [place] tel: [phone] Aline possible anxiety (chief complaint) Anxiety Oct- 1 Joey Roblesa. [address] [place], [place], [address] , [place]. tel: [phone] Referring Provider: Jazzy Ch, [address] [place], [address] . tel:[phone] [facility], [address], [place], [place], [address] , [place] tel: [phone] Al[facility] Acute pain of left shoulder Apr-0 1 Jair Purcell. [address] [place], [place], [address] , [place]. tel: [phone] OFFICE HYVTR-OPO-DW [facility], [address], [place], [place], [address] , [place] tel: [phone] Aline evaluate left shoulder pain (chief complaint)Chr onic Conditions (chief complaint) Body mass index (BMI) 25.0-25.9, adultAcute pain of left shoulderInflamed seborrheic keratosisInsomni a, unspecified typeDigital mucinous cyst of finger of right hand Sep-2 1 Jair Purcell. [address] [place], [place], [address] , [place]. tel: [phone] Referring Provider: Jazzy Ch, [address] [place], [address] . tel:[phone] [facility], [address], [place], [place], [address] , [place] tel: [phone] [facility] Pain of right middle finger 1 Jair Purcell. [address] [place], [address] , [place]. tel: [phone] [facility], [address], [place], [place], [address] , [place] tel: [phone] [facility] Paresthesias in right hand Sep-1 0-202 0 Jair Purcell. [address] [place], [address] , [place]. tel: [phone] [facility], [address], [place], [place], [address] , [place] tel: [phone] [facility] cerumen impaction (chief complaint) Bilateral impacted cerumenBilateral hearing loss, unspecified hearing loss typeAdult general medical exam 0 Joey Agarwal. [address] [place], [place], [address] , [place]. tel: [phone] Referring Provider: Jazzy Ch, [address] [place], [address] . tel:[phone] PREVENTATIVE -EST: 40-64 [facility], [address], [place], [place], [address] , [place] tel: [phone] [facility] Physical (chief complaint)pre ventive exam (chief complaint) Body mass index (BMI) 25.0-25.9, adultPM[facility] medical examBilateral impacted cerumen 0 Jair Purcell. [address] [place], [place], [address] , [place]. tel: [phone] Referring Provider: Jazzy Ch, [address] [place], [address] . tel:[phone] OFFICE THPUQ-XTN-QM TAILED [facility], [address], [place], [place], [address] , [place] tel: [phone] [facility] 3rd right toe red and painful (chief complaint) Paronychia of toe of right footFatigue, unspecified type Sep- 2- 0 Cook Any. [address] [place], [place], [address] , [place]. tel: [phone] Referring Provider: Jazzy Ch, [address] [place], [address] . tel:[phone] [facility], [address], [place], [place], [address] , [place] tel: [phone] [facility] Breast asymmetry 9 Jair Purcell. [address] [place], [place], [address] , [place]. tel: [phone] Referring Provider: Jazzy Ch, [address] [place], [address] . tel:[phone] [facility], [address], [place], [place], [address] , [place] tel: [phone] [facility] Routine medical examPure hypercholesterol emiaRight knee pain, unspecified chronicity 9 Jair Purcell. [address] [place], [place], [address] , [place]. tel: [phone] Referring Provider: Jazzy Ch, [address] [place], [address] . tel:[phone] [facility], [address], [place], [place], [address] , [place] tel: [phone] [facility] Routine general medical examination at a health care facilityPure hypercholesterol emia 9 Jair Purcell. [address] [place], [place], [address] , [place]. tel: [phone] Referring Provider: Jazzy Ch, [address] [place], [address] . [phone] [facility], [address], [place], [place], [address] , [place] tel: [phone] Aline Post-menopausal Jun- 8 Jair Purcell. [address] [place], [place], [address] , [place]. tel: [phone] [facility], [address], [place], [place], [address] , [place] tel: [phone] Aline Right foot painAcute pain of right knee 8 Jair Purcell. [address] [place], [address] , [place]. tel: [phone] [facility], [address], [place], [place], [address] , [place] tel: [phone] Aline Acute pain of right kneeRight foot pain 8 Jair Purcell. [address] [place], [address] , [place]. tel: [phone] Referring Provider: Jazzy Ch, [address] [place], [address] . tel:[phone] [facility], [address], [place], [place], [address] , [place] tel: [phone] [facility] Allergic rhinitis, unspecified seasonality, unspecified triggerSeborrhei c keratosis 8 Jair Purcell. [address] [place], [place], [address] , [place]. tel: [phone] Referring Provider: Jazzy Ch, [address] [place], [address] . tel:[phone] [facility], [address], [place], [place], [address] , [place] tel: [phone] [facility] Pure hypercholesterol emiaInsomnia due to medical conditionDegener ative disc disease, lumbar Oct- 8 Jair Jazzy. [address] [place], [place], [address] , [place]. tel: [phone] Referring Provider: Jazzy Ch, [address] [place], [address] . tel:[phone] [facility], [address], [place], [place], [address] , [place] tel: [phone] Aline Pure hypercholesterol emiaRoutine general medical examination at a health care facility 8 Jair Purcell. [address] [place], [address] , [place]. tel:[phone] Referring Provider: Jazzy Ch, [address] [place], [address] . tel:[phone] [facility], [address], [place], [place], [address] , tel: [phone] [facility] Pain of toe of left foot 0 8 Jair Purcell. [address] [place], [address] , [place]. tel:[phone] [facility], [address], [place], [place], [address] , tel: [phone] [facility] Routine general medical examination at a health care facilityPure hypercholesterol emiaDegenerative disc disease, lumbarInsomnia due to medical conditionScreeni ng for osteoporosis 8 Jair Jazzy. [address] [place], [address] , [place]. [phone] Referring Provider: Jazzy Ch, [address] [place], [address] . tel:[phone] Family History Family Member Type Diagnosis Age At Onset No Information Immunizations Vaccine Date Status Comments Fluzone Quad, preservative free, split virus, 0.5mL dosage refused Source: New Immuniza tion Record Tdap administered Source: Source Unspecified Payers Payer name Insurance type Covered democrat ID Authoriza tion(s) [facility] [id number] Social History Type Description Quantity Date Captured [...] Referred To: Al Gould MD [address] [place], [phone] Ordered: Referrals: Gastroenterology. Al Gould MD. Evaluation/diagnostic/treatment - Level 3 ordered Referral Referred To: [address] [place], [phone] Ordered: DEXA of spine and hip ordered Referral Referred To: Link Kelley MD Ordered: Referrals: Hand surgery. Link Kelley MD. Location: [address] [place] [address] [address] [address]. Evaluation/diagnostic/treatment - Level 3 ordered Referral Referred To: Jaime Basilio MD [address] [place], [phone] Ordered: Referrals: Otolaryngology. Jaime Basilio MD. Evaluation/diagnostic/treatment - Level 3 ordered Referral Referred To: Physical Therapy [address] [place], [phone] Ordered: Referrals: Physical Therapy. Location: [facility]. Evaluation/diagnostic/treatment - Level 3 ordered Referral Referred To: [address] [place], [phone] Ordered: MRI of left shoulder without contrast ordered Referral Referred To: Kimberly Minaya MD [address] [place], [phone] Ordered: Referrals: Dermatology. Kimberly Minaya MD. Evaluation/diagnostic/treatment - Level 3 ordered Referral Referred To: [address] [place], [phone] Ordered: X-ray right hand, 3+ views ordered Referral Referred To: [address], [phone] Ordered: Limited electromyography with nerve conduction study ordered Referral Ordered: DIAGNOSTIC MAMMOGRAM (CAD) ONE BREAST Right Appointment date/timeframe: 06/03/2019 ordered Appointment Haris Lockhart BOOKED Appointment Haris Lockhart BOOKED History Of Present Illness Encounter Date Complaint History Of Prese nt Illness f/u urgent care visit Pt. was se en in [facility] urgent care 3 days ago due to [...] and neck. States she started terbenafine from [facility] for onychomycosis but no other new meds. Does work in garden regularly. ear pain 59 year old kirsten pena who presents with ear pain for about 2 weeks. She was evaluated at [facility] care on 11/28 with right ear pressure [...] DPM. She was taking terbinafine prescribed by director export. preventive exam Associated sympt oms include anxiety. [...] itchy and watery fStates she saw her vp & general counsel 3 months ago in February, and was prescribed fluoromethalone eye drops by Dr. Lee's optometry associate on 03/04/23. States she used the drops for 10 days with improvement.Had f/u for routine eye exam in March,, with her vp & general counsel and was advised she could use the [...] with ASCVD 10 year risk score 2%.Sees office helper clerical for pap smears.Colonoscopy UTDMammogram UTDdue for DEXARefuses to get any vaccines.Takes ambien chronically for chronic insomnia with occasional dry mouth but no other SE's. . evaluate multiple complaints Pt here with pain over medial aspect of bilateral knees that started approx. 2 to 3 weeks ago.Has noticed mild swelling over medial left knee at times. No known injury but had been in [place] walking on the beach fairly often. Has [...] to 177. Due for mammogram in May.Sees office helper clerical for routine well woman exams with pap [...] to 157. Due for mammogram in May.Saw office helper clerical for routine well woman exam in September,.Has [...] general surgery note from ees Dr. Mistry, office helper clerical, at [facility] mildly elevated cholesterol- not much exercise [...] Her symptoms improved. Patient wore crocs in [place] one month ago and her symptoms have [...] exercising recently due to illness and husbands MS. Functional Status Date Functional Assessmen t No [...] improving Related to Right acute otitis media Referral to Dr. Sakina monique for colonoscopy you are due forFasting labs done todayContinue yearly screening mammogramContinue to follow up with your metrology specialist for routine Pap smearsContinue regular exerciseCall if you change your mind about getting a flu vaccine and you can schedule this here at the officefollow up in 1 year for physical and labs Related to Annual physical exam Continue to do some regular exerciseContinue diazepam as needed Related to Generalized anxiety disorder continue ambien as needed Relate d to Insomnia, unspecified type Exercise Dietary management e ducation, guidance, and [...] a counselor Related to Moderate major depression continue ambien as needed Relate d to Insomnia, unspecified type Continue to do some regular exerciseCall back if you are interested in talking to a counselor Related to Generalized anxiety disorder Nov-02-2023 recommend cool compr esses and you [...] screening mammogramContinue to follow up with your metrology specialist for routine Pap smearsContinue regular exerciseCall if [...] symptoms Related to Pain in left knee Try to wear shoes wi th good support at all timesYou can ice and elevate the knees if you have any swellingfollow up if any worsening symptoms Related to Pain in right knee Have your mammogram sent here when you have this done this fall.Keep follow up with your metrology specialist for routine well woman exams continue regular [...] to Body mass index (BMI) 22.0-22.9, adult Rx sent for zithroma xcontinue to increase clear liquids, over the counter Mucinex to loosen mucous drainage and follow up if worsening symptoms Related to Sinusitis, unspecified chronicity, unspecified location continue to increase clear liquids, over the counter Mucinex to loosen mucous drainage and follow up if worsening symptoms Related to Bronchitis Dietary management e ducation, guidance, and counseling Related to Body mass index (BMI) 22.0-22.9, adult referral to Dr. Kanu cummins, hand surgeon to evaluate mucinous cyst on 3rd finger Related to Digital mucinous cyst of finger of right hand Have your mammogram sent here when you are due for this in follow up with your metrology specialist for routine well woman exams every Septembercontinue [...] ear canal Related to Bilateral impacted cerumen Cerumen completely r emoved from ear canal Related to Bilateral hearing loss, unspecified hearing loss type use Debrox drops for 3 to 4 days prior to cerumen removal later this month Related to Bilateral impacted cerumen Have your mammogram sent here when you are due for this.Keep follow up with your metrology specialist for routine well woman examscontinue regular walkingschedule [...]
[2025-04-11 11:54] VITALS: BP 118/67; PULSE 88; RESP 16; TEMP 36.5; O2SAT 99
--- NOTE | 2025-04-11 12:00 | ED.GENADULT ---
HPI - General Adult General Chief complaint: Anxiety Stated complaint: Anxiety Time Seen by Provider: 04/11/25 12:00 Source: patient Mode of arrival: ambulatory Limitations: no limitations History of Present Illness HPI narrative: 59 yo F here for medication refill. Pt has hx of anxiety. States that after taking prednisone to treat poison zaid, anxiety has been worse and cant get it under control. Was seen at an in [place] and given prescription for lorazepam. Has family vacation coming that she needs to get through. Only has 1 lorazepam left. Denies SI/HI. All systems reviewed and negative except as noted above. Related Data Home Medications ?Medication ?Instructions ?Recorded ?Confirmed ?Last Taken ?Type lifitegrast 5 % eye drops in a 1 drp EACH EYE BID 11/20/21 12/07/24 Unknown History dropperette (Xiidra) zolpidem 5 mg tablet 5 mg PO QHS PRN 11/20/21 12/07/24 Unknown History multivitamin 1 tablet PO DAILY 12/07/24 12/07/24 Unknown History Allergies Allergy/AdvReac Type Severity Reaction Status Date / Time No Known Allergies Allergy Verified 04/11/25 11:51 [facility] Past Medical History Medical History Screening mammogram, encounter for Tinnitus of both ears Back pain Abnormal Pap smear of cervix 06/24/12 ascus neg hpv; hx lgsil; 2010 ascus; 2009 LGSIL Surgical History Surgical History History of dilation and curettage (12/03/07) hscope d&c--menometrorrhagia, thickened endometrial cavity History of colposcopy with cervical biopsy 10/07/03 cervical bx--LGSIL, ECC--benign 01/05/09 benign Family History Family History Grandparent Breast cancer maternal grandmother Other Diabetes mellitus Heart disease Social History Social History (Updated 12/07/24 @ 09:11 by ZULEMA Kirby) Smoking status: Never smoker Second hand tobacco smoke exposure: No Alcohol intake: never Substance use: never Substance use type: does not use Do You Feel Safe in your Home?: Yes Lack of Transportation: No Lack of Food: Never True Current Housing: Decline to Answer Concerned About Future Housing: Decline to Answer Difficulty Paying Gas/Electric Bills: Decline to Answer Difficulty Paying for Meds: Decline to Answer Currently Unemployed: Decline to Answer Education: Decline to Answer Difficulty w/ Childcare or Family Care: Decline to Answer Living arrangements: with family Additional living arrangements comments: Occupation/Education: retired Gender identity (if verbalized by the patient): Female Sexual Orientation (if Verbalized by the Patient): Straight or Heterosexual Comments At time of signature, agree with nursing past medical, surgical, social and family history. There is no relevant family history pertinent to the presenting complaint. Exam Narrative: GENERAL: This is a well-nourished, well-developed patient, in no apparent distress. HEAD: normocephalic, atraumatic. EYES: PERRL. Sclera clear/white. Vision is grossly intact. EARS: External ears normal NOSE: External nose normal NECK: Neck supple, non-tender without lymphadenopathy, masses or thyromegaly. CARDIOVASCULAR: Regular rate and rhythm without murmurs, gallops, or rubs. RESPIRATORY: Clear to auscultation. Breath sounds equal bilaterally. No wheezes, rales, or rhonchi. SKIN: warm, Dry, intact with no suspicious lesions or rash, good texture and turgor. NEURO: awake, alert, and oriented to person, place and time. There were no obvious focal neurologic abnormalities. EXTREMITIES: No joint tenderness, effusion, or edema noted. Course Course Level of Care: Express Care Visit Vital Signs Vital signs: Vital Signs Temperature 36.5 C 04/11/25 11:54 Pulse Rate 88 04/11/25 11:54 Respiratory Rate 16 04/11/25 11:54 Blood Pressure 118/67 04/11/25 11:54 Pulse Oximetry 99 04/11/25 11:54 Temperature 36.5 C 04/11/25 11:54 Pulse Rate 88 04/11/25 11:54 Respiratory Rate 16 04/11/25 11:54 Blood Pressure 118/67 04/11/25 11:54 Pulse Oximetry 99 04/11/25 11:54 Reviewed Medical Decision Making MDM Narrative Medical decision making narrative: explain to patient that we cannot refill lorazepam at [facility] because it is a controlled substance and should be monitored And refilled by a mental health specialist. Referred patient to [facility] and [facility] clinics that have walk-in hours. Vital Signs Vital Signs: Vital Signs Temperature 36.5 C 04/11/25 11:54 Pulse Rate 88 04/11/25 11:54 Respiratory Rate 16 04/11/25 11:54 Blood Pressure 118/67 04/11/25 11:54 Pulse Oximetry 99 04/11/25 11:54 Temperature 36.5 C 04/11/25 11:54 Pulse Rate 88 04/11/25 11:54 Respiratory Rate 16 04/11/25 11:54 Blood Pressure 118/67 04/11/25 11:54 Pulse Oximetry 99 04/11/25 11:54 Discharge Plan Discharge Clinical Impression: Anxiety Patient Disposition: Home Condition: Stable Instructions: Anxiety (ED) Additional Instructions: Follow up at [facility] Clinics that I provided for you for further treatment of your anxiety. Patient Language: [place] Prescriptions: No Action Xiidra 5 % dropperette 1 drp EACH EYE BID Rx Instructions: administer approximately 12 hours apart zolpidem 5 mg tablet 5 mg PO QHS PRN multivitamin Tablet 1 tablet PO DAILY Follow-up/Referrals: PHYSICIAN,STAVE PLANER TENDER [Primary Care Provider, Internal Medicine] Time of Disposition: 12:28
--- OUTSIDE RECORDS SUMMARY | 2025-04-11 12:06 | XMS_ITS | Clinical Summary ---
Author Organization [facility] Address [address] [place] [address] Care Team Providers Care Zyglo Technician Name Role Phone Jazzy Adam MD Primary Care Provider [phone] Allergies No known active allergies Medications XIIDRA 5 % ophthalmic solution PLACE 1 DROP INTO BOTH EYES TWICE A DAY EVERY 12 HOURS 06/16/2019 Active diazepam 5 MG tablet 08/09/2019 Active azithromycin (ZITHROMAX Z-JACEK) 250 MG tablet Take 2 tablets today then 1 tablet daily for 4 days. 6 tablet 08/21/2019 Active zolpidem (AMBIEN) 5 MG tablet Take 1 tablet (5 mg total) by mouth nightly as needed for Sleep. Active Active Problems No known active problems Family History Medical History Relation Comments None Father None Mother Relation Status Comments Father Alive Mother Alive Social History Tobacco Use Types Packs/Day Years Used Date Smoking Tobacco: Never Smokeless Tobacco: Never Tobacco Cessation:Counseling Given: No Comments:non smoker Alcohol Use Standard Drinks/Week Comments No 0 (1 standard drink = 0.6 oz pur e alcohol) AUDIT-C Answer Date Recorded Frequency of Alcohol Consumption Never 07/17/2019 Average Number of Drinks Not on file 020 Frequency of Binge Drinking Not on file 10/2019 Comments No Sex and Gender Information Value Date Recorded Sex Assigned at Female 11/12/2024 8:51 AM CDT Legal Sex Female 9:17 PM CDT Gender Identity Not on file Sexual Orientation Not on file Last Filed Vital Signs Vital Sign Reading Time Taken Comments Blood Pressure 132/81 11/12/2024 9:03 AM CDT Pulse 88 11/12/2024 9:03 AM CDT Temperature 36.9 C (98.5 F) 11/12/2024 9:03 AM CDT Respiratory Rate 18 11/12/2024 9:03 AM CDT Oxygen Saturation 98% 11/12/2024 9:03 AM CDT Inhaled Oxygen Concentration - - Weight 53.5 kg (118 lb) 11/12/2024 9:03 AM CDT Height 152.4 cm (5') 11/12/2024 9:03 AM CDT Body Mass Index 23.05 11/12/2024 9:03 AM CDT Plan of Treatment Health Maintenance Due Date Last Done Comments Cervical Cancer Screening Pap Smear (Age 30 to 64) Every 3 Years 1963 Colorectal Cancer Screening Colonoscopy (10 Years) 1963 Annual Physical 1966 Hepatitis C 1981 DTaP, Tdap and Td Vaccines (1 - Tdap) 1982 Cervical Cancer Screening Pap with HPV Testing (Age 30 to 64) Every 5 Years 1993 Cervical Cancer Screening with HPV 1993 Pneumococcal Vaccine: 50+ Years (1 of 1 - PCV) 2013 Zoster Vaccines (1 of 2) 2013 COVID-19 Vaccine (1 - season) 2025 Mammogram Screening 10/27/2026 10/27/2024, 10/02/2023, 09/11/2022, Additional history exists RSV Immunization or 60+ Years (1 - 1-dose 75+ series) 2038 Meningococcal B Vaccine Aged Out No l onger eligible based on patient's age to complete this topic Meningococcal Vaccine Aged Out No liliana diego eligible based on patient's age to complete this topic RSV Immunizations Under 20 Months Aged Out No longer eligible based on patient's age to complete this topic Insurance [facility] Care Teams Zyglo Technician Relationship Specialty Start Date End Date Jazzy Adam MD PCP - General INTERNAL MEDICINE 06/24/18
--- OUTSIDE RECORDS SUMMARY | 2025-04-11 12:06 | XMS_ITS | Patient Health Record ---
Author Organization [facility] Address [address] [place], [place] [id number] Care Team Providers Care Motion Picture Operator Name Role Phone MARIETTA PARK Unavailable [phone] Jazzy Adam Unavailable Unavailable CARLOS PARKS Unavailable [phone] Allergies No Known Allergies Reason For Referral No Information Medications Medication SIG (Take, Route, Frequency, Duration) Notes Start Date End Date Status terbinafine 250 MG Oral Tablet ORAL terbinafine 250 MG Oral TabletOriginal Medicationterbinafine 250 MG Oral Tablet *Reorder from [employer] for eRx and Interaction Alerts* 06/24/2022 Active Terbinafine HCl 250 MG 1 tablet Orally Once a day; Duration: 42 days 04/04/2025 Active Vital Signs Height-cm 154.94 cm 10/29/2024 Weight-kg 54.43 kg 10/29/2024 Height 61.00 in 10/29/2024 Weight 120 lbs 10/29/2024 BMI 22.67 kg/m2 10/29/2024 Encounters Encounter Location Date Provider Diagnosis [facility] [address] [facility] [address] [place], [place] [id number] 10/29/2024 CARLOS SNOOK Tinea unguium B35.1 and Pain in right toe(s) M79.674 [facility] [address] [place], [place] [id number] 04/04/2025 CARLOS SNOOK [facility] [address] [place], [place] [id number] 12/07/2024 CARLOS SNOOK [facility] [address] [place], [place] [id number] 02/14/2025 CARLOS SNOOK [facility] [address] [place], [place] [id number] 03/15/2025 CARLOS SNOOK Assessments Encounter Date Diagnosis (ICD Code) Assessment Notes Treatment Notes Treatment Clinical Notes Section Notes 10/29/2024 Tinea unguium (ICD-10 - B35.1) FUNGAL TOENAILS: Discussed various treatment options for fungal toenails including debridement, topical antifungals, oral antifungals, toenail avulsion, or toenail matrixectomy. Lamisil Initial Treatment: Order Liver Function tests prior to course of oral Lamisil. If the LFTS are within normal limits, order 6 weeks of Lamisil. Liver Function Test will be repeated after 6 weeks prior to final dose for a total of 12 weeks of therapy. 10/29/2024 Pain in right toe(s) (ICD-10 - M79.674) Plan Of Treatment Pending Test Test Name Order Date Liver Function Test (LFT) 10/29/2024 Insurance Providers Payer Name Payer Address Payer Phone Subscriber Number Group Number Insured Name Patient Relationship to Insured Coverage Start Date Coverage End Date [facility] ([facility]) ATTN CLAIMS [address] [place] [address] [id number] CARLENE ALFREDO Spouse - patient is the spouse of the insured
--- OUTSIDE RECORDS SUMMARY | 2025-04-11 12:06 | XMS_ITS | Clinical Summary ---
Author Organization [facility] Building Address [address] [place] [id number] Care Team Providers Care Insurance Professional Name Role Phone Jazzy Adam MD Unavailable [phone] Jazzy Adam MD Primary Care Provider + Allergies No known active allergies Medications multivitamin capsule Take 1 capsule by mouth daily Active cyanocobalamin (vitamin B-12) 100 mcg tabletIndication s:Prevention of Vitamin B12 Deficiency Take 1,000 mcg by mouth daily Active cholecalciferol (VITAMIN D3) 5,000 unit tablet Active inulin (FIBER GUMMIES ORAL) Take by mouth Ac tive Xiidra 5 % dropperette PLACE 1 DROP INTO BOTH EYES TWICE A DAY EVERY 12 HOURS 0 Active zolpidem (AMBIEN) 5 mg tablet TAKE 1 TABLET BY MOUTH AT BEDTIME NEEDED FOR ISOMNIA 0 Active olopatadine (Pataday) 0.2 % ophthalmic solution Pataday 0.2 % eye drops Active albuterol HFA (PROVENTIL HFA,VENTOLIN HFA,PROAIR HFA) 90 mcg/actuation inhaler Inhale 2 puffs every 4 (four) hours as needed for wheezing 1 each 2 Active hydrOXYzine (ATARAX) 25 mg tabletIndication s:anxiety Take 1 tablet (25 mg total) by mouth every 8 (eight) hours as needed for itching 15 tablet 5 Active Active Problems Problem Noted Date Diagnosed Date Non-recurrent acute allergic otitis media of rig ht ear 11/28/2024 Assessment & Plan (11/28/2024 5:25 PM CDT): History and physical consistent with otits media likely 2/2 allergic rhinitis Treat with amoxicillin 875 mg po bid x 10 days May use tylenol and/or ibuprofen for discomfort. Warm compresses may be helpful as well. Follow up for worsening symptoms or no improvement over next 2-3 days. Acute bacterial conjunctivitis of left eye 11/28 Assessment & Plan (11/28/2024 5:19 PM CDT): History and physical consistent with bacterial conjunctivitis. Initiate antibiotic eye drops with Polytrim 4 times daily x 7 days Patient instructed on contagious nature of pink eye. Instructed to follow up urgently should develop eye pain, change in vision, light sensitivity or worsening symptoms. 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 Encounters Date Type Department Care Team Description 03/17/2025 11:33 PM CDT - 03/18/2025 2:30 AM CDT Emergency [facility] Emergency Department [address] [place] [address] Ronald Gomez Jr., MD Chest pain, unspecified type (Primary Dx) Discharge Disposition: Discharge to home or self care from Last 3 Months Medical History Medical History Date Comments Anxiety No known health problems Family History Medical History Relation Name Comments Breast cancer Maternal Grandmother Relation Name Status Comments Maternal Grandmother Social History Tobacco Use Types Packs/Day Years Used Date Smoking Tobacco: Never Smokeless Tobacco: Never Alcohol Use Standard Drinks/Week Comments Never 0 (1 standard drink = 0.6 oz pur e alcohol) AUDIT-C Answer Date Recorded Frequency of Alcohol Consumption Never 05/27/2019 Average Number of Drinks Not on file 019 Frequency of Binge Drinking Not on file 05/14 Personal Safety Answer Date Recorded Have you ever been in or are you currently in a harmful physical or emotional relationship or is someone making you feel afraid or unsafe? 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 Gender Identity Not on file Sexual Orientation Not on file Obstetrics History Last Filed Vital Signs Vital Sign Reading Time Taken Comments Blood Pressure 145/67 03/18/2025 2:12 AM CDT Pulse 63 03/18/2025 2:30 AM CDT Temperature 36.7 C (98 F) 03/18/2025 2:12 AM CDT Respiratory Rate 12 03/18/2025 2:30 AM CDT Oxygen Saturation 100% 03/18/2025 2:30 AM CDT Inhaled Oxygen Concentration - - Weight 57.9 kg (127 lb 10.3 oz) 03/17/2025 9:30 PM CDT Height 154.9 cm (5' 1) 11/28/2024 1:39 PM CDT Body Mass Index 24.12 11/28/2024 1:39 PM CDT Plan of Treatment Health Maintenance Due Date Last Done Comments Cervical Cancer Screening 1965 Colon Cancer Screening-Colonoscopy 1965 Depression Screening 1963 Hepatitis C Screening 1963 Hepatitis B Screening 1981 Regular Well Visit/Exam 18-64 1981 Zoster Vaccine (1 of 2) 2013 Influenza Vaccine (#1) 2025 Breast Cancer Screening-Mammogram 10/27/2025 10/27/2024, 10/02/2023, 09/11/2022, Additional history exists DTaP/Tdap/Td Vaccine (2 - Td or Tdap) 09/21/2030 09/21/2020 Pneumococcal vaccine <65 Aged Out No longer eligible based on patient's age to complete this topic Procedures Procedure Name Priority Date/Time Associated Diagnosis Comments TROPONIN T HIGH-SENSITIVITY 2-HOUR Timed 03/18/2025 12:04 AM CDT POCT GLUCOSE DEVICE Routine 03/17/2025 1 1:05 PM CDT XR CHEST PA LATERAL 2 VIEWS ED 03/17/2025 9:53 PM CDT DRUGS OF ABUSE SCREEN, URINE WITHOUT CONFIRMATION STAT 03/17/2025 9:49 PM CDT EGFR STAT 03/17/2025 9:48 PM CDT DIFFERENTIAL AUTO STAT 03/17/2025 9:4 8 PM CDT TROPONIN T HIGH-SENSITIVITY SERIES (BASELINE, 2HR, 4HR, 6HR) STAT 03/17/2025 9:48 PM CDT COMPREHENSIVE METABOLIC PANEL STAT 03/17/2025 9:48 PM CDT CBC WITH AUTO DIFFERENTIAL STAT 03/17/2025 9:48 PM CDT ECG 12-LEAD STAT 03/17/2025 9:42 PM CDT SCREENING MAMMOGRAM BILATERAL W TAMIR Schedule Routine, Read Routine (OP Routine) 10/27/2024 9:29 AM CDT Screening mammogram, encounter for from Last 3 Months or Most Recently Relevant to Health Maintenance Results * Troponin T high-sensitivity 2-hour (03/18/2025 12:04 AM CDT) Trop T hs <6 <=14 ng/L Comment: Interpretive Data For further hscTnT resources including the diagnostic algorithm and an aid in interpretation, copy and paste this link: https://nrl.testcatalog.org/show/hsTrop Current Interpretive Data last revised 2020. Testing performed by: [address] [address] Trop T hs delta 0 ng/L FERNANDO LOVE Comment:Testing performed by : [address] [address] Trop T hs interp Insignificant FERNANDO LOVE Comment:Testing performed by : [address] [address] Blood 03/18/2025 12:0 4 AM CDT 03/18/2025 12:32 AM CDT Ronald Gomez Jr., MD LAB BLOOD ORDERABLES F inal Result Performing Organization Address City/[facility] Co de Phone Number FERNANDO [address] [facility] Department [place] [address] * POCT glucose (03/17/2025 11:05 PM CDT) Glucose, POC 104 70 - 199 mg/dL Comment:Testing performed by : [facility], [address] [place] [address]., [id number] Blood 03/17/2025 11:0 5 PM CDT 03/17/2025 11:05 PM CDT us Notinfile Unknown LAB POCT ORDERABLES - DEVICE F inal Result Performing Organization Address [facility] Co de Phone Number FERNANDO [address] [facility] Department [place] [address] * XR Chest PA Lateral 2 Views (If patient hemodynamically stable and ambulatory) (03/17/2025 9:53 PM CDT) Anatomical Region Laterality Modality Body, Chest N/A Computed Radiogr aphy 03/17/2025 10:0 6 PM CDT Narrative 03/17/2025 10:08 PM CDT EXAM DESCRIPTION: XR CHEST PA LATERAL 2 VIEWS REASON FOR STUDY: chest pain Chest pain TECHNIQUE: Frontal and lateral radiographic views of the chest acquired. COMPARISON: Chest x-ray of July 31, 2021. FINDINGS: LUNGS/PLEURA: No focal consolidation or pneumothorax. No pleural effusion. There is no significant change as compared to previous study. HEART/MEDIASTINUM: Cardiac silhouette is normal. Remaining mediastinal silhouettes are unremarkable. HARDWARE/LINES/TUBES: None. BONES: No acute findings. IMPRESSION: No acute cardiopulmonary abnormality. THIS IS AN ELECTRONICALLY VERIFIED FINAL REPORT 03/17/2025 10:08 PM - Electronically signed by Leticia Oliva M.D. SN: Report ID: [id number] Reading Location: [id number] Procedure Note Leticia Oliva MD - 03/17/2025 EXAM DESCRIPTION: XR CHEST PA LATERAL 2 VIEWS REASON FOR STUDY: chest pain Chest pain TECHNIQUE: Frontal and lateral radiographic views of the chest acquired. COMPARISON: Chest x-ray of July 31, 2021. FINDINGS: LUNGS/PLEURA: No focal consolidation or pneumothorax. Nopleural effusion. There is no significant change as compared to previous study. HEART/MEDIASTINUM: Cardiac silhouette is normal. Remaining mediastinal silhouettes are unremarkable. HARDWARE/LINES/TUBES: None. BONES: No acute findings. IMPRESSION: No acute cardiopulmonary abnormality. THIS IS AN ELECTRONICALLY VERIFIED FINAL REPORT 03/17/2025 10:08 PM - Electronically signed by Leticia Oliva M.D. SN: SN Report ID: [id number] Reading Location: [place] [address] Ronald Gomez Jr., MD IMG XR PROCEDURES Diana l Result * Drugs of Abuse Screen, Urine without Confirmation (03/17/2025 9:49 PM CDT) Pathologist [facility] Amphetamine, ur Not Detected CutOff 500ng/mL Comment: Interpretive Data - Amphetamines: Samples containing greater than 500 ng/mL d-methamphetamine or other cross-reacting amphetamine compounds are reported as positive. Amphetamine immunoassays are subject to significant false positive rates due to cross-reactivity of non-amphetamine drugs. Confirmatory testing required for definitive results. Current Interpretive Data was last reviewed 2023. Testing performed by: [address] [address] Barbiturates, ur Not Detected CutOff 200ng/mL FERNANDO Comment: Interpretive Data - Barbiturates: Samples containing greater than 200 ng/mL secobarbital or other cross-reacting barbiturate compounds are reported as positive. False positive and false negative results are possible. Confirmatory testing required for definitive results. Current Interpretive Data was last reviewed 2023. Testing performed by: [address] [address] Benzodiazepines, ur Not Detected CutOff 100ng/mL FERNANDO MH Comment: Interpretive Data - Benzodiazepines: Samples containing greater than 100 ng/mL nordiazepam or other cross-reacting compounds are reported as positive. False positive and false negative results are possible. Confirmatory testing required for definitive results. Current Interpretive Data was last reviewed 2023. Testing performed by: [facility], [address] [place] [address]., [address] Cannabinoids, ur Not Detected CutOff 50 ng/mL [facility] Comment: Interpretive Data - Cannabinoids: Samples containing greater than 50 ng/mL delta-9 THC -COOH or other cross- reacting compounds are reported as positive. False positive and false negative results are possible. Confirmatory testing required for definitive results. Current Interpretive Data was last reviewed 2023. Testing performed by: [address] [address] Cocaine, ur Not Detected CutOff 150ng/mL [facility] Comment: Interpretive Data - Cocaine: Samples containing greater than 150 ng/mL benzoylecgonine or other cross- reacting compounds are reported as positive. False positive and false negative results are possible. Confirmatory testing required for definitive results. Current Interpretive Data was last reviewed 2023. Testing performed by: [address] [address] Fentanyl, Ur Not Detected CutOff 5 ng/mL [facility] Comment: Interpretive Data - Fentanyl: Samples containing greater than 1 ng/mL fentanyl or other cross-reacting fentanyl compounds are reported as positive. False positive and false negative results are possible. Confirmatory testing required for definitive results. Current Interpretive Data was last reviewed 2023. Testing performed by: [address] [address] Methadone, ur Not Detected CutOff 300ng/mL [facility] Comment: Interpretive Data - Methadone: Samples containing greater than 300 ng/mL d,l-methadone or other cross-reacting compounds are reported as positive. False positive and false negative results are possible. Confirmatory testing required for definitive results. Current Interpretive Data was last reviewed 2023. Testing performed by: [address], [place]., [address] Opiates, ur Not Detected CutOff 300ng/mL [facility] Comment: Interpretive Data - Opiates: Samples containing greater than 300 ng/mL morphine or other cross-reacting compounds are reported as positive. False positive and false negative results are possible. Confirmatory testing required for definitive results. Current Interpretive Data was last reviewed 2023. Testing performed by: [address] [address] Oxycodone, ur Not Detected CutOff 100ng/mL FERNANDO Comment: Interpretive Data - Oxycodone: Samples containing greater than 100 ng/mL oxycodone or other cross-reacting compounds are reported as positive. False positive and false negative results are possible. Confirmatory testing required for definitive results. Current Interpretive Data was last reviewed 2023. Testing performed by: [address] [address] Phencyclidine, ur Not Detected CutOff 25 ng/mL FERNANDO Comment: Interpretive Data - Phencyclidine: Samples containing greater than 25 ng/mL phencyclidine or other cross-reacting compounds are reported as positive. False positive and false negative results are possible. Confirmatory testing required for definitive results. Current Interpretive Data was last reviewed 2023. Testing performed by: [address] [address] Urine Creatinine 9 mg/dL FERNANDO Comment: Interpretive Data Urine Creatinine: < 10 mg/dL is extremely dilute = or > 10 but < 20 mg/dL is dilute = or > 20 mg/dL is normal Current Interpretive Data was last revised on 2017. Testing performed by: [address] [address] Urine 03/17/2025 9:49 PM CDT 03/17/2025 9:53 PM CDT Narrative FERNANDO - 03/17/2025 10:16 PM CDT Drug of Abuse screening is performed by immunoassay for medical purposes only. This is not to be used for Pain Management purposes. us Ronald Gomez Jr., MD LAB URINE ORDERABLES F inal Result FERNANDO [address] [facility] Department [place] [address] * Troponin T high-sensitivity series (baseline, 2hr, 4hr, 6hr) (03/17/2025 9:48 PM CDT) Trop T hs <6 <=14 ng/L Comment: Interpretive Data For further hscTnT resources including the diagnostic algorithm and an aid in interpretation, copy and paste this link: https://nrl.testcatalog.org/show/hsTrop Current Interpretive Data last revised 2020. Testing performed by: [facility], [address] [place] [address]., [address] Blood 03/17/2025 9:48 PM CDT 03/17/2025 9:53 PM CDT Ronald Gomez Jr., MD LAB BLOOD ORDERABLES F inal Result JOSUENER [address] [facility] Department [place] [address] * eGFR (03/17/2025 9:48 PM CDT) eGFR >90 >=60 mL/min/1. 73 m2 Comment: Interpretive Data Reference Interval Normal >/= 90 mL/min/1.73m2 Mildly decreased* 60 - 89 mL/min/1.73m2 Mildly to moderately decreased 45 - 59 mL/min/1.73m2 Moderately to severely decreased 30 - 44 mL/min/1.73m2 Severely decreased 15 - 29 mL/min/1.73m2 Kidney Failure < 15 mL/min/1.73m2 *Relative to young adult level Estimated glomerular filtration rate is determined by the 2020 CKD-EPI equation recommended by the National Kidney Foundation (A Unifying Approach to GFR Estimation: Recommendations of the NKF-ASK Task Force on Reassessing the Inclusion of Race in Diagnosing Kidney Disease, JASN 2020). The CKD-EPI equation should not be used for patients with unstable renal function and has not been validated in children and those over 70. Current interpretive data was last reviewed 2021. Testing performed by: [address] [address] Blood 03/17/2025 9:48 PM CDT 03/17/2025 9:53 PM CDT us Ronald Gomez Jr., MD LAB BLOOD ORDERABLES F inal Result [facility] [address] [facility] Department [place] [address] * (ABNORMAL) Differential, auto (03/17/2025 9:48 PM CDT) Neutrophil abs 7.17(H) 1.50 - 6.50 K/cumm Comment:Testing performed by : [address] [address] Imm gran abs 0.15(H) 0.00 - 0.10 K/cumm FERNANDO Comment:Testing performed by : [address] [address] Lymphocyte abs 1.71 0.80 - 3.30 K/cumm FERNANDO Comment:Testing performed by : [address] [address] Monocyte abs 0.57 0.20 - 0.80 K/cumm [facility] Comment:Testing performed by : [address] [address] Eosinophil abs 0.02 0.00 - 0.50 K/cumm FERNANDO Comment:Testing performed by : [address] [address] Basophil abs 0.02 0.00 - 0.10 K/cumm [facility] Comment:Testing performed by : [address] [address] Neutrophil pct 74.4 % FERNANDO Comment: Interpretive Data Percent cell count reference ranges are not reported, since discordance with absolute values may lead to misinterpretation of CBC data. Current Interpretive Data was last revised on 2017. Testing performed by: [address] [address] Imm gran pct 1.6 % FERNANDO Comment: Interpretive Data Percent cell count reference ranges are not reported, since discordance with absolute values may lead to misinterpretation of CBC data. Current Interpretive Data was last revised on 2017. Testing performed by: [address] [address] Lymphocyte pct 17.7 % [facility] Comment: Interpretive Data Percent cell count reference ranges are not reported, since discordance with absolute values may lead to misinterpretation of CBC data. Current Interpretive Data was last revised on 2017. Testing performed by: [address] [address] Monocyte pct 5.9 % [facility] Comment: Interpretive Data Percent cell count reference ranges are not reported, since discordance with absolute values may lead to misinterpretation of CBC data. Current Interpretive Data was last revised on 2017. Testing performed by: [address] [address] Eosinophil pct 0.2 % [facility] Comment: Interpretive Data Percent cell count reference ranges are not reported, since discordance with absolute values may lead to misinterpretation of CBC data. Current Interpretive Data was last revised on 2017. Testing performed by: [address] [address] Basophil pct 0.2 % [facility] Comment: Interpretive Data Percent cell count reference ranges are not reported, since discordance with absolute values may lead to misinterpretation of CBC data. Current Interpretive Data was last revised on 2017. Testing performed by: [address] [address] Blood 03/17/2025 9:48 PM CDT 03/17/2025 9:53 PM CDT us Ronald Gomez Jr., MD LAB BLOOD ORDERABLES F inal Result FERNANDO [address] [facility] Department [place] [address] * CBC with auto differential (03/17/2025 9:48 PM CDT) Pathologist [facility] WBC 9.64 3.80 - 9.90 K/cumm Comment:Testing performed by : [address], [address] Hgb 12.3 11.9 - 15.5 g/dL FERNANDO Comment:Testing performed by : [address] [address] Hct 36.8 35.6 - 45.5 % FERNANDO Comment:Testing performed by : [address] [address] Plt 379 150 - 400 K/cumm FERNANDO Comment:Testing performed by : [address], [address] MPV 10.6 9.1 - 12.3 fL FERNANDO Comment:Testing performed by : [address], [address] RBC 4.09 3.90 - 5.20 M/cumm FERNANDO Comment:Testing performed by : [address], [address] MCV 90.0 81.3 - 96.4 fL FERNANDO Comment:Testing performed by : [address] [address] MCH 30.1 27.1 - 33.3 pg FERNANDO Comment:Testing performed by : [address] [address] MCHC 33.4 32.3 - 35.7 g/dL FERNANDO Comment:Testing performed by : [address], [address] RDW CV 13.0 11.1 - 14.9 % FERNANDO Comment:Testing performed by : [address], [address] RDW SD 42.6 35.7 - 48.1 fL FERNANDO Comment:Testing performed by : [address], [address] NRBC abs 0.00 0.00 - 0.01 K/cumm FERNANDO Comment:Testing performed by : [address], [address] Blood Venous blood specimen / Unknown 03/17/2025 9:48 PM CDT 03/17/2025 9:53 PM CDT Ronald Gomez Jr., MD LAB BLOOD ORDERABLES F inal Result [facility] [address] [facility] Department [place] [address] * Comprehensive metabolic panel (03/17/2025 9:48 PM CDT) Pathologist [facility] Sodium 141 135 - 145 mmol/L Comment:Testing performed by : [address] [address] Potassium, pl 4.0 3.3 - 4.9 mmol/L FERNANDO Comment: Hemolyzed; Potassium value may be falsely elevated by as much as 1.0 mmol/L. Suggest redraw and reanalysis. Testing performed by: [address] [address] Chloride 104 97 - 110 mmol/L FERNANDO Comment:Testing performed by : [address] [address] CO2 23 22 - 32 mmol/L FERNANDO Comment:Testing performed by : [address] [address] Anion gap 14 2 - 15 mmol/L FERNANDO Comment:Testing performed by : [address] [address] BUN 16 6 - 25 mg/dL FERNANDO Comment:Testing performed by : [address] [address] Creatinine 0.71 0.60 - 1.10 mg/dL FERNANDO Comment:Testing performed by : [address] [address] Glucose 110 70 - 199 mg/dL FERNANDO Comment: Interpretive Data Fasting glucose >/= 126 mg/dl is diagnostic for diabetes. Fasting is defined as no caloric intake for at least 8 hours. Fasting glucose between 100 mg/dl to 125 mg/dl is diagnostic of prediabetes. In a patient with classic symptoms of hyperglycemia or hyperglycemic crisis, a random glucose >/= 200 mg/dl is diagnostic for diabetes. In the absence of unequivocal hyperglycemia, results should be confirmed by repeat testing. The classification and Diagnosis of Diabetes Diabetes Care 202; 46: S19-S40. Current interpretive data was last revised 2022. Testing performed by: [address] [address] Calcium 10.3 8.5 - 10.3 mg/dL FERNANDO Comment:Testing performed by : [address] [address] Bilirubin, total 0.3 0.1 - 1.2 mg/dL FERNANDO Comment:Testing performed by : [address] [address] Protein, pl 7.9 6.5 - 8.5 g/dL FERNANDO Comment:Testing performed by : [address] [address] Albumin 4.9 3.5 - 5.0 g/dL FERNANDO Comment:Testing performed by : [address] [address] Alk phos 55 40 - 130 Units/L FERNANDO Comment:Testing performed by : [address] [address] ALT 17 7 - 45 Units/L FERNANDO Comment:Testing performed by : [address] [address] AST 16 10 - 45 Units/L FERNANDO Comment: Hemolyzed; result may be falsely elevated Testing performed by: [address] [address] Blood 03/17/2025 9:48 PM CDT 03/17/2025 9:53 PM CDT us Ronald Gomez Jr., MD LAB BLOOD ORDERABLES F inal Result FERNANDO LOVE [address] [facility] Department [place] [address] * ECG 12 lead (03/17/2025 9:42 PM CDT) Ventricular Rate EKG/Min 69 BPM [facility] Atrial Rate 69 BPM [facility] VA-Interval (MSEC) 142 ms [facility] QRS-Interval (MSEC) 92 ms [facility] QT-Interval (MSEC) 406 ms [facility] QTc 435 ms [facility] P [place] 76 degrees [facility] R [place] 56 degrees [facility] T [place] 72 degrees [facility] Diagnosis Normal sinus rhythm RSR' or QR pattern in V1 suggests right ventricular conduction delay Otherwise normal tracing No previous ECGs available Confirmed by JENNIFER SIDHU M.D. ([id number]) on 03/21/2025 10:14:09 PM [facility] 03/17/2025 9:42 PM CDT 03/21/2025 10:14 PM CDT us Ronald Gomez Jr., MD ECG ORDERABLES Final Result [facility] * Screening Mammogram Bilateral W Tamir (10/27/2024 9:29 AM CDT) Anatomical Region Laterality Modality Breast Bilateral Mammography Narrative 10/28/2024 1:04 PM CDT Mammogram Technique: Bilateral Digital Breast Tomosynthesis, Bilateral C-view 2D Screening mammogram. Views obtained: bilateral craniocaudal and bilateral mediolateral oblique. Computer Aided Detection was performed. Mammogram Findings: The present examination has been compared to prior imaging studies performed at [facility] on 09/11/2022 and 10/02/2023, and at [facility] on 07/11/2021. There are scattered areas of fibroglandular density. There is no suspicious abnormality in either breast. Impression: There is no mammographic evidence of malignancy. Annual screening mammography is recommended. OVERALL FINAL ASSESSMENT: BI-RADS CATEGORY 1: Negative. Procedure Note Nixon Davis MD - 10/28/2024 Mammogram Technique: Bilateral Digital Breast Tomosynthesis, Bilateral C-view 2D Screening mammogram. Views obtained: bilateral craniocaudal and bilateral mediolateral oblique. Computer Aided Detection was performed. Mammogram Findings: The present examination has been compared to prior imaging studies performed at [facility] on 09/11/2022 and 10/02/2023, and at [facility] on 07/11/2021. There are scattered areas of fibroglandular density. There is no suspicious abnormality in either breast. Impression: There is no mammographic evidence of malignancy. Annual screening mammography is recommended. OVERALL FINAL ASSESSMENT: BI-RADS CATEGORY 1: Negative. us Self Screening Mammogram IMG MAMMO PROCEDURES Fi nal Result from Last 3 Months or Most Recently Relevant to Health Maintenance Insurance [email or web address] [place] [email or web address] [place] [employer] [place] Care Teams Insurance Professional Relationship Specialty Start Date End Date Jazzy Adam MD PCP - General 05/08/21 Jazzy Adam MD 12/19/20
== END 2025-04-11 12:30 | disposition home or self-care (01) ==
PROVIDERS: Emergency Provider Nurse Practitioner Family
DX: F41.9 Anxiety disorder, unspecified (principal)
CPT/HCPCS: 99213; G0463